=== PATIENT | male | born 1990 | race Caucasian/White ===

== ENCOUNTER 2018-11-26 20:39 | Emergency (ER) | payer OTHER ==
[2018-11-26 20:51] VITALS: BP 128/84; PULSE 83; RESP 16; TEMP 98
[2018-11-26] MEDS ORDERED: CEPHALEXIN 500MG STARTER PACK 4 CAP BTL PO STA (21:56)
[2018-11-26] MEDS ORDERED: SULFAMETH-TMP DS STARTER PACK 2 TAB BTL PO STA (21:56)
--- NOTE | 2018-11-26 21:59 | ED ---
General Adult HPI - General Source: patient, RN notes reviewed Mode of arrival: ambulatory Limitations: no limitations <Dereje Doe P - Last Filed: 11/26/18 22:01> <Juani Encarnacion P - Last Filed: 11/27/18 00:40> - General Chief complaint: Extremity Problem,Nontraumatic Stated complaint: Cellulitis Time Seen by Provider: 11/26/18 21:04 - History of Present Illness Initial comments: 28-year-old male presents to the emergency department for a chief complaint of cellulitis on the left lower extremity times one day. Patient states he noticed this late last night. Patient states he had similar symptoms about 3 months ago and was admitted to [facility] for antibiotics. Patient is unsure what antibiotics he had in the hospital but does state he was discharged on amoxicillin. Patient states he caught this early and it is not nearly as bad as when he was admitted. States he would like to try oral antibiotics. States he will certainly return if it worsens. He has felt like he had chills but has not had fevers at home. Patient has no other complaints at this time including shortness of breath, chest pain, abdominal pain, nausea or vomiting, headache, or visual changes. (Dereje Doe) - Related Data Previous Rx's Medication Instructions Recorded Cephalexin [Keflex] 500 mg PO Q6HR 10 Days cap 11/26/18 Sulfamethox-Tmp 800-160Mg [Bactrim 1 tab PO Q12HR #20 tab 11/26/18 DS 800-160 mg] Allergies Allergy/AdvReac Type Severity Reaction Status Date / Time No Known Allergies Allergy Verified 11/26/18 20:51 Review of Systems ROS Other: All systems not noted in ROS Statement are negative. <Dereje Doe P - Last Filed: 11/26/18 22:01> ROS Other: All systems not noted in ROS Statement are negative. <Juani Encarnacion P - Last Filed: 11/27/18 00:40> ROS Statement: Those systems with pertinent positive or pertinent negative responses have been documented in the HPI. Past Medical History Past Medical History: No Reported History History of Any Multi-Drug Resistant Organisms: None Reported Past Surgical History: No Surgical Hx Reported Past Psychological History: No Psychological Hx Reported Smoking Status: Never smoker Past Alcohol Use History: Occasional Past Drug Use History: None Reported <Dereje Doe P - Last Filed: 11/26/18 22:01> General Exam Limitations: no limitations General appearance: alert, in no apparent distress Head exam: Present: atraumatic, normocephalic, normal inspection Eye exam: Present: normal appearance, PERRL, EOMI. Absent: scleral icterus, conjunctival injection, periorbital swelling ENT exam: Present: normal exam, mucous membranes moist Neck exam: Present: normal inspection, full ROM. Absent: tenderness, meningismus, lymphadenopathy Respiratory exam: Present: normal lung sounds bilaterally. Absent: respiratory distress, wheezes, rales, rhonchi, stridor Cardiovascular Exam: Present: regular rate, normal rhythm, normal heart sounds. Absent: systolic murmur, diastolic murmur, rubs, gallop, clicks GI/Abdominal exam: Present: soft, normal bowel sounds. Absent: distended, tenderness, guarding, rebound, rigid Extremities exam: Present: normal capillary refill (Capillary refill less than 2 seconds and DP pulse 2+ in the left lower extremity), other (Incision intact in the left lower extremity). Absent: pedal edema, joint swelling Neurological exam: Present: alert, oriented X3, CN II-XII intact Psychiatric exam: Present: normal affect, normal mood Skin exam: Present: erythema (She has a tendency to right meter by 10 cm area of erythema noted to the left posterior calf as well as a 5 cm x 2 cm area noted to the left anterior leg. No fluctuance or abscess noted) <Dereje Doe P - Last Filed: 11/26/18 22:01> Vital Signs 11/26/18 20:47 Temperature 98 F Pulse Rate 83 Respiratory 16 Rate Blood Pressure 128/84 O2 Sat by Pulse 99 Oximetry Medical Decision Making <Dereje Doe P - Last Filed: 11/26/18 22:01> <Juani Encarnacion P - Last Filed: 11/27/18 00:40> - Medical Decision Making 28-year-old well-appearing male presents to the emergency department for chief complaint of erythema noted to the left calf. Patient has a history of cellulitis. Patient states he had this early and would prefer to try oral antibiotics. Patient has a 10 x 10 cm area of erythema noted to the left posterior calf As well as a 5 x 2 cm area of erythema noted to the left anterior town[place]. No fluctuance or area of suspected abscess. This patient would like to try outpatient antibiotics she'll be given Bactrim and Keflex. Areas of erythema were marked with a black marker. Discussed strict return precautions with patient including spreading redness. Patient agrees he will return if this occurs. Discussed with Dr. Encarnacion (Dereje Doe) I was available for consultation in the emergency department. The history and physical exam were done by the midlevel provider. I was consulted for this patient's care. I reviewed the case with the midlevel provider and based on their presentation of the patient, I agree with the assessment, medical decision making and plan of care as documented. (Juani Encarnacion) Disposition Is patient prescribed a controlled substance at d/c from ED?: No Time of Disposition: 21:57 <Dereje Doe - Last Filed: 11/26/18 22:01> <Juani Encarnacion - Last Filed: 11/27/18 00:40> Clinical Impression: Cellulitis Disposition: HOME SELF-CARE Condition: Good Instructions (If sedation given, give patient instructions): Cellulitis (ED) Additional Instructions: Please take antibiotics as directed. Please monitor for spreading redness and return if these occur. Use black marker to shanae the outline. Return if you have any worsening symptoms. Follow up with primary care in 1-2 days. Prescriptions: Cephalexin [Keflex] 500 mg PO Q6HR 10 Days cap Sulfamethox-Tmp 800-160Mg [Bactrim DS 800-160 mg] 1 tab PO Q12HR #20 tab Referrals: Marcial Person MD [REFERRING] - 1-2 days
== END 2018-11-26 22:08 | disposition home or self-care (01) ==
LOC: EC 20:39
DX: L03.116 Cellulitis of left lower limb (principal)
CPT/HCPCS: 99283

== ENCOUNTER 2019-01-14 18:26 | Inpatient (IN) | payer OTHER ==
--- NOTE | 2019-01-14 19:16 | ED ---
Skin/Abscess/FB HPI - General Source: patient, RN notes reviewed Mode of arrival: ambulatory Limitations: no limitations <Jude Galicia - Last Filed: 01/14/19 19:14> <Maribeth Billings - Last Filed: 01/14/19 21:21> - General Chief complaint: Skin/Abscess/Foreign Body Stated complaint: Cellulitis Time Seen by Provider: 01/14/19 18:48 - History of Present Illness Initial comments: 28-year-old male presents emergency Department with chief complaint of left leg pain, swelling or redness. Patient's had this recurrent infection to his leg. He states she's been hospital several times. Patient denies any known injury. No history of blood clot. Patient states he woke up, with a fever, body aches, not feeling well. Patient states he noticed his leg was red and swelling in. Patient states is also had some mild URI symptoms. Patient states that they believe this infection is from opening from his athletes feet. (Jude Galicia) - Related Data Previous Rx's Medication Instructions Recorded Cephalexin [Keflex] 500 mg PO Q6HR 10 Days cap 11/26/18 Sulfamethox-Tmp 800-160Mg [Bactrim 1 tab PO Q12HR #20 tab 11/26/18 DS 800-160 mg] Allergies Allergy/AdvReac Type Severity Reaction Status Date / Time No Known Allergies Allergy Verified 01/14/19 18:34 Review of Systems ROS Other: All systems not noted in ROS Statement are negative. <Jude Galicia - Last Filed: 01/14/19 19:14> ROS Other: All systems not noted in ROS Statement are negative. <Maribeth Billings - Last Filed: 01/14/19 21:21> ROS Statement: Those systems with pertinent positive or pertinent negative responses have been documented in the HPI. Past Medical History Past Medical History: No Reported History History of Any Multi-Drug Resistant Organisms: None Reported Past Surgical History: No Surgical Hx Reported Past Psychological History: No Psychological Hx Reported Smoking Status: Never smoker Past Alcohol Use History: Occasional Past Drug Use History: None Reported <Jude Galicia - Last Filed: 01/14/19 19:14> General Exam Limitations: no limitations General appearance: alert, in no apparent distress Head exam: Present: atraumatic, normocephalic, normal inspection Eye exam: Present: normal appearance, PERRL, EOMI. Absent: scleral icterus, conjunctival injection, periorbital swelling ENT exam: Present: normal exam, normal oropharynx, mucous membranes moist, TM's normal bilaterally Neck exam: Present: normal inspection, full ROM. Absent: tenderness, meningismus, lymphadenopathy Respiratory exam: Present: normal lung sounds bilaterally. Absent: respiratory distress, wheezes, rales, rhonchi, stridor Cardiovascular Exam: Present: regular rate, normal rhythm, normal heart sounds. Absent: systolic murmur, diastolic murmur, rubs, gallop, clicks Skin exam: Present: warm, dry, intact, normal color, rash (Left leg there is erythema, increased warmth, swelling noted, there are pulses equal of the lower extremities) <Jued Galicia - Last Filed: 01/14/19 19:14> Course Vital Signs 01/14/19 01/14/19 18:32 18:34 Temperature 98.2 F 99.8 F H Pulse Rate 102 H Respiratory 16 Rate Blood Pressure 127/71 O2 Sat by Pulse 100 Oximetry Medical Decision Making - Lab Data Result diagrams: 01/14/19 18:40 01/14/19 18:40 <Maribeth Billings - Last Filed: 01/14/19 21:21> - Medical Decision Making 28-year-old male given to me as Patient is sign out from Jude Willis. He presents today with 1 day of significant cellulitis over the left lower leg. Fever. Laboratory was obtained. White blood cell count is elevated 14,000. Patient was started on 2 g Kefzol. At this time he has significant cellulitis extending around the leg. Patient reports having intermittent cellulitis for the past few months. He was admitted to [facility] time. reports this cellulitis were is the worst that his abdomen. I discussed with Patient that we like to admit the Patient for IV antibiotics. Patient agrees to admission. (Maribeth Billings) - Lab Data Lab Results 01/14/19 01/14/19 01/14/19 Range/Units 18:40 18:40 18:40 WBC 14.3 H (3.8-10.6) k/uL RBC 5.05 (4.30-5.90) m/uL Hgb 15.3 (13.0-17.5) gm/dL Hct 44.7 (39.0-53.0) % MCV 88.4 (80.0-100.0) fL MCH 30.4 (25.0-35.0) pg MCHC 34.4 (31.0-37.0) g/dL RDW 13.2 (11.5-15.5) % Plt Count 187 (150-450) k/uL Neutrophils % 88 % Lymphocytes % 5 % Monocytes % 5 % Eosinophils % 1 % Basophils % 0 % Neutrophils # 12.6 H (1.3-7.7) k/uL Lymphocytes # 0.8 L (1.0-4.8) k/uL Monocytes # 0.7 (0-1.0) k/uL Eosinophils # 0.1 (0-0.7) k/uL Basophils # 0.0 (0-0.2) k/uL Sodium 136 L (137-145) mmol/L Potassium 4.2 (3.5-5.1) mmol/L Chloride 100 (98-107) mmol/L Carbon Dioxide 26 (22-30) mmol/L Anion Gap 10 mmol/L BUN 22 H (9-20) mg/dL Creatinine 1.17 (0.66-1.25) mg/dL Est GFR (CKD-EPI)AfAm >90 (>60 ml/min/1.73 sqM) Est GFR (CKD-EPI)NonAf 85 (>60 ml/min/1.73 sqM) Glucose 111 H (74-99) mg/dL Plasma Lactic Acid Bradley 1.5 (0.7-2.0) mmol/L Calcium 9.1 (8.4-10.2) mg/dL Total Bilirubin 1.3 (0.2-1.3) mg/dL AST 29 (17-59) U/L ALT 41 (21-72) U/L Alkaline Phosphatase 46 (38-126) U/L Total Protein 6.9 (6.3-8.2) g/dL Albumin 4.1 (3.5-5.0) g/dL Influenza Type A RNA (Not Detectd) Influenza Type B (PCR) (Not Detectd) 01/14/19 Range/Units 18:40 WBC (3.8-10.6) k/uL RBC (4.30-5.90) m/uL Hgb (13.0-17.5) gm/dL Hct (39.0-53.0) % MCV (80.0-100.0) fL MCH (25.0-35.0) pg MCHC (31.0-37.0) g/dL RDW (11.5-15.5) % Plt Count (150-450) k/uL Neutrophils % % Lymphocytes % % Monocytes % % Eosinophils % % Basophils % % Neutrophils # (1.3-7.7) k/uL Lymphocytes # (1.0-4.8) k/uL Monocytes # (0-1.0) k/uL Eosinophils # (0-0.7) k/uL Basophils # (0-0.2) k/uL Sodium (137-145) mmol/L Potassium (3.5-5.1) mmol/L Chloride (98-107) mmol/L Carbon Dioxide (22-30) mmol/L Anion Gap mmol/L BUN (9-20) mg/dL Creatinine (0.66-1.25) mg/dL Est GFR (CKD-EPI)AfAm (>60 ml/min/1.73 sqM) Est GFR (CKD-EPI)NonAf (>60 ml/min/1.73 sqM) Glucose (74-99) mg/dL Plasma Lactic Acid Bradley (0.7-2.0) mmol/L Calcium (8.4-10.2) mg/dL Total Bilirubin (0.2-1.3) mg/dL AST (17-59) U/L ALT (21-72) U/L Alkaline Phosphatase (38-126) U/L Total Protein (6.3-8.2) g/dL Albumin (3.5-5.0) g/dL Influenza Type A RNA Not Detected (Not Detectd) Influenza Type B (PCR) Not Detected (Not Detectd) Disposition <Jude Galicia - Last Filed: 01/14/19 19:14> Is patient prescribed a controlled substance at d/c from ED?: No Time of Disposition: 21:21 <Maribeth Billings - Last Filed: 01/14/19 21:21> Clinical Impression: Left leg cellulitis, Fever Disposition: ADMITTED IP TO THIS HOSP Condition: Stable Referrals: Guido Colin MD [Primary Care Provider] - 1-2 days
[2019-01-14 19:55] LABS: Basophils % (A) 0 %; Eosinophils # (A) 0.1 k/uL (0-0.7); Eosinophils % (A) 1 %; HCT 44.7 % (39.0-53.0); HGB 15.3 gm/dL (13.0-17.5); Lymphocytes # (A) 0.8 k/uL (1.0-4.8); Lymphocytes % (A) 5 %; MCH 30.4 pg (25.0-35.0); MCHC 34.4 g/dL (31.0-37.0); MCV 88.4 fL (80.0-100.0); Mean Platelet Volume 7.3; Monocytes # (A) 0.7 k/uL (0-1.0); Monocytes % (A) 5 %; Neutrophils # (A) 12.6 k/uL (1.3-7.7); Neutrophils % (A) 88 %; Platelet Count 187 k/uL (150-450); RBC 5.05 m/uL (4.30-5.90); RDW 13.2 % (11.5-15.5); WBC 14.3 k/uL (3.8-10.6)
[2019-01-14 20:08] LABS: ALT 41 U/L (21-72); AST 29 U/L (17-59); Albumin 4.1 g/dL (3.5-5.0); Alkaline Phosphatase 46 U/L (38-126); Anion Gap 10 mmol/L; Blood Urea Nitrogen 22 mg/dL (9-20); Calcium 9.1 mg/dL (8.4-10.2); Carbon Dioxide 26 mmol/L (22-30); Chloride 100 mmol/L (98-107); Glucose 111 mg/dL (74-99); Potassium 4.2 mmol/L (3.5-5.1); Sodium 136 mmol/L (137-145); Total Bilirubin 1.3 mg/dL (0.2-1.3); Total Protein 6.9 g/dL (6.3-8.2)
[2019-01-14] MEDS ORDERED: ONDANSETRON 4 MG/2 ML VIAL IVP PRN (21:23)
[2019-01-14] MEDS ORDERED: MORPHINE SULFATE 4 MG/ML SYRINGE IV PRN (21:23)
[2019-01-14] MEDS ORDERED: KETOROLAC 30 MG/ML 1 ML VIAL IVP PRN (21:23)
[2019-01-14] MEDS ORDERED: ACETAMINOPHEN TAB 325 MG TAB PO PRN (21:23)
[2019-01-14] MEDS ORDERED: NALOXONE 0.4 MG/ML 1 ML VIAL IV PRN (21:23)
[2019-01-14] MEDS ORDERED: IBUPROFEN 400 MG TAB PO PRN (21:23)
[2019-01-15 00:09] VITALS: BMI 31.6
[2019-01-15] MEDS: PIPERACILLIN-TAZOBACTAM 3.375 GM in SODIUM CHLORIDE 0.9% 100 ML IVPB SCH ×2 (00:43→08:19)
[2019-01-15] MEDS: SODIUM CHLORIDE 0.9% 1,000 ML IV SCH ×2 (02:18→21:05)
[2019-01-15] MEDS ORDERED: PANTOPRAZOLE 40 MG/10 ML VIAL IV SCH (09:00)
[2019-01-15] MEDS: ceFAZolin IN SWFI 2 GM/20 ML SYRINGE IVP SCH ×2 (15:05→23:00)
--- NOTE | 2019-01-15 15:23 | US ---
EXAMINATION TYPE: US venous doppler duplex LE LT DATE OF EXAM: 01/15/2019 1:22 PM COMPARISON: NONE CLINICAL HISTORY: 28-year-old male swelling and redness. Left leg cellulitis, exam done portable SIDE PERFORMED: Left TECHNIQUE: The lower extremity deep venous system is examined utilizing real time linear array sonog milagros with graded compression, doppler sonography and color-flow sonography. FINDINGS: VESSELS IMAGED: External Iliac Vein (EIV) Common Femoral Vein Deep Femoral Vein Greater Saphenous Vein * Femoral Vein Popliteal Vein Small Saphenous Vein * Proximal Calf Veins (* superficial vessels) Left Leg: Appears negative for DVT IMPRESSION: No evidence for DVT within the left lower extremity imaged from the groin to the upper calf.
[2019-01-15] MEDS: NYSTATIN 100,000UNIT/GM CREAM 30 GM TUBE TOPICAL SCH (21:02)
--- NOTE | 2019-01-15 23:12 | P.HPIM ---
History of Present Illness H&P Date: 01/15/19 Chief Complaint: Swelling and redness of the left lower extremity Mr. Mccall is a 28-year-old male with no significant past medical history coming in with the chief complaint of left leg pain and swelling and redness for the past couple of days. The patient states that he had a similar kind of infection in October and he was prescribed antibiotics, completed the course successfully. Patient denies having any history of blood clots. He states that [place] went [place] few of his friends couple of days back and then when he woke up one morning he felt that he was having a fever, myalgias and later noticed the redness and swelling in his left leg. Patient also complains of mild upper respiratory tract-like infections with nasal congestion and runny nose. Patient denies having any sore throat. No cough or difficulty in breathing. No chest pain or palpitations. He denies having any abdominal pain nausea vomiting or diarrhea. No dysuria or hematuria. Review of Systems REVIEW OF SYSTEMS: PSYCH: No history of anxiety or depression NEURO:No c/o weakness of the extremties, No facial droop, No speech abnormalities. VASCULAR: As per HPI HEMATOLOGIC: No history of easy bleeding and bruising . No recent infections . RESPIRATORY: No cough, No SOB, No chest discomfort. IMMUNE: No infections INTEGUMENT: no rashes OPHTHALMOLOGIC: No blurry vision and no eye discharge : No dysuria or hematuria CARDIAC: No chest pain , shortness of breath , paroxysmal nocturnal dyspnea MUSCULOSKELETAL : Complains of generalized weakness, fatigue and myalgias. GI: No abdominal pain, Nausea or vomiting. No constipation or diarrhea. Past Medical History Past Medical History: No Reported History History of Any Multi-Drug Resistant Organisms: None Reported Past Surgical History: No Surgical Hx Reported Past Psychological History: No Psychological Hx Reported Smoking Status: Never smoker Past Alcohol Use History: Occasional Past Drug Use History: None Reported Medications and Allergies Home Medications Medication Instructions Recorded Confirmed Type Acetaminophen Tab [Tylenol] 1,000 mg PO Q8H 01/14/19 01/14/19 History Allergies Allergy/AdvReac Type Severity Reaction Status Date / Time No Known Allergies Allergy Verified 01/14/19 22:13 Physical Exam Vitals: Vital Signs Temp Pulse Pulse Resp BP BP Pulse Ox 01/15/19 08:44 98.5 F 84 14 128/76 94 L 01/14/19 18:34 99.8 F H 01/14/19 18:32 98.2 F 102 H 16 127/71 100 Intake and Output 01/14/19 01/15/19 01/15/19 22:59 06:59 14:59 Intake Total 100 Balance 100 Intake: IV 100 Piperacillin-Tazobactam 3 100 .375 gm In Sodium Chloride 0.9% 100 ml @ 25 mls/hr IVPB Q8HR [facility] Rx# :[id number] Other: Voiding Method Toilet # Voids 1 Weight 117.934 kg GEN. APPEARANCE: alert, in no apparent distress HEAD EXAM: atraumatic, normocephalic, normal inspection EYE EXAM: No pallor. No icterus RESPIRATORY EXAM: Bilateral breath sounds positive No wheeze or crackles. CARDIOVASCULAR EXAM: S1-S2 heard no additional sounds. GI/ABDOMINAL EXAM: soft, normal bowel sounds. Absent: distended, tenderness, guarding, rebound, rigid EXTREMITIES EXAM: Left lower extremity is positive for erythema, warmth and tenderness ,girth more than the right. No edema. No calf tenderness. NEUROLOGICAL EXAM: alert, oriented X3, no focal neurological deficits on gross exam Results CBC & Chem 7: 01/14/19 18:40 01/14/19 18:40 Labs: Abnormal Lab Results - Last 24 Hours (Table) 01/14/19 01/14/19 Range/Units 18:40 18:40 WBC 14.3 H (3.8-10.6) k/uL Neutrophils # 12.6 H (1.3-7.7) k/uL Lymphocytes # 0.8 L (1.0-4.8) k/uL Sodium 136 L (137-145) mmol/L BUN 22 H (9-20) mg/dL Glucose 111 H (74-99) mg/dL Thrombosis Risk Factor Assmnt - Choose All That Apply Any of the Below Risk Factors Present?: Yes Each Factor Represents 1 point: Obesity (BMI >25) Thrombosis Risk Factor Assessment Total Risk Factor Score: 1 Thrombosis Risk Factor Assessment Level: Low Risk Assessment and Plan Assessment: ASSESSMENT Left lower extremity cellulitis -recurrent Viral URI PLAN: Patient has been started on Zosyn in the ED which will be continued. He received a dose of ceftriaxone. Will get lower extremity Doppler to rule out DVT. We will consult ID Dr. Foote as the patient has recurrent cellulitis. Further recommendations to follow depending on the progress of the patient.
[2019-01-16] MEDS: ceFAZolin IN SWFI 2 GM/20 ML SYRINGE IVP SCH ×3 (07:12→23:20)
[2019-01-16] MEDS: PANTOPRAZOLE 40 MG TABLET PO SCH (07:12)
[2019-01-16] MEDS: NYSTATIN 100,000UNIT/GM CREAM 30 GM TUBE TOPICAL SCH ×2 (07:13→21:05)
[2019-01-16 08:56] LABS: Basophils % (A) 1 %; Eosinophils # (A) 0.1 k/uL (0-0.7); Eosinophils % (A) 1 %; HCT 45.5 % (39.0-53.0); HGB 15.1 gm/dL (13.0-17.5); Lymphocytes # (A) 1.1 k/uL (1.0-4.8); Lymphocytes % (A) 20 %; MCH 29.4 pg (25.0-35.0); MCHC 33.1 g/dL (31.0-37.0); MCV 88.6 fL (80.0-100.0); Mean Platelet Volume 7.2; Monocytes # (A) 0.5 k/uL (0-1.0); Monocytes % (A) 9 %; Neutrophils # (A) 3.6 k/uL (1.3-7.7); Neutrophils % (A) 65 %; Platelet Count 183 k/uL (150-450); RBC 5.13 m/uL (4.30-5.90); RDW 13.2 % (11.5-15.5); WBC 5.5 k/uL (3.8-10.6)
[2019-01-16 09:21] LABS: Anion Gap 9 mmol/L; Blood Urea Nitrogen 17 mg/dL (9-20); Calcium 9.1 mg/dL (8.4-10.2); Carbon Dioxide 27 mmol/L (22-30); Chloride 106 mmol/L (98-107); Glucose 110 mg/dL (74-99); Sodium 142 mmol/L (137-145)
[2019-01-16 09:23] LABS: Potassium 4.7 mmol/L (3.5-5.1)
--- NOTE | 2019-01-16 10:11 | CONS ---
CONSULTATION DATE OF SERVICE: 01/15/2019 REASON FOR CONSULTATION: Left lower extremity cellulitis. HISTORY OF PRESENT ILLNESS: The patient is a 28-year-old male with past medical history significant for recurrent left foot cellulitis. The patient did have 2 episodes of cellulitis to the left leg, also this was in October. Apparently the patient said that he was given some antibiotic and was seen in the outpatient setting and the patient to be admitted. The patient is now presenting to the ER at [facility] yesterday evening with chief complaints of left leg swelling and redness. The pain has been going on for 2 days before coming to the hospital. The patient said it initially started when he was up [place]. Patient described pain to the left leg, more of a dull aching pain, foot 5/10 and no radiation with associated swelling and redness and did have a fever with chills. The patient was evaluated by the ER physician. The patient did have a low- grade fever of 99.9 on presentation, white count was 14.8 point he did have abdominal wound negative for DVT. Blood cultures were obtained which have been pending so far. The patient was started on Zosyn and admitted to the hospital. Infectious Disease was consulted for further recommendation regarding antibiotic therapy. REVIEW OF SYSTEMS: CONSTITUTIONAL: Positive for weakness and fever. EYES: No complaint. ENT: No complaint. RESPIRATORY: No complaint. CARDIOVASCULAR: No complaint. GENITOURINARY: NO COMPLAINT. GASTROINTESTINAL: No complaint. MUSCULOSKELETAL: No complaint. INTEGUMENT: As per HPI. Psychological: No complaint. ENDOCRINE: No complaint. NEUROLOGICAL: No complaint. PAST MEDICAL HISTORY: Left leg cellulitis x2. PAST SURGICAL HISTORY: No recent surgery. SOCIAL HISTORY: Patient denies smoking. Occasionally drinks, no drug use. FAMILY HISTORY: No pertinent findings. ALLERGIES: No known drug allergies. MEDICATIONS: The patient is currently on Zosyn, Narcan, morphine sulfate, Toradol, Motrin, and Tylenol. PHYSICAL EXAMINATION: Blood pressure is 130/71 with a pulse of 82, temperature 98.1, he is 97% on room air. General description is a middle-aged male, lying in bed in no distress. No tachypnea or accessory muscle for respiration use. HEENT: Shows no pallor or scleral icterus. Oral mucosa is dry. No erythema or thrush. NECK: Trachea central, no thyromegaly. LUNGS: Unlabored breathing, clear to auscultation anteriorly. No wheeze or crackles. HEART: S1-S2, regular rate and rhythm. ABDOMEN: Soft, no tenderness. No rigidity. EXTREMITIES: Left leg with diffuse swelling, redness, mostly in the lower leg area with some culture to the left mid thigh area. No drainage. However, the patient did have evidence of athlete's foot in between the toes. NEUROLOGICAL: Patient is awake, alert, oriented, mood and affect normal. LABS: Hemoglobin is 15, white count is 14.3 with a BUN of 22, creatinine 1.17, influenza serology negative. Blood culture currently pending. DIAGNOSTIC IMPRESSION AND PLAN: Patient with extensive left lower extremity cellulitis. This patient did have diffuse swelling and redness likely streptococcal disease. Clinically doubt a gram-negative or recent wound infection with Athlete's foot more likely the reason for his recurrent left lower extremity cellulitis. PLAN: 1. Discontinue the Zosyn. 2. Will start the patient on cefazolin 2 g q.8 hours. 3. cream 2 twice a day. 4. The patient has been educated about his condition including probable treatment of his Athlete's foot to prevent recurrence of this in the future. 5. Will follow up on his clinical condition and adjust her medications further if needed. Thank you for this consultation. Will follow this patient along with you. RODGER / DEBRA: [id number] /
[2019-01-16] MEDS: SODIUM CHLORIDE 0.9% 1,000 ML IV SCH (21:05)
[2019-01-16 23:08] VITALS: RESP 18
--- NOTE | 2019-01-17 06:48 | PN ---
PROGRESS NOTE DATE OF SERVICE: 01/16/2019. REASON FOR FOLLOWUP: Left lower extremity cellulitis and Athlete's foot. INTERVAL HISTORY: The patient is currently afebrile. Overall pain, swelling and redness to the left leg has decreased. The patient denies having any chest pain. No shortness of breath or cough. No abdominal pain or any diarrhea. PHYSICAL EXAMINATION: On examination, blood pressure 126/76, pulse of 72, temperature 98.6. He is 98% on room air. General description is a middle-aged male, lying in bed, in no distress. RESPIRATORY SYSTEM: Unlabored breathing, clear to auscultation anteriorly. HEART: S1, S2. Regular rate and rhythm. ABDOMEN: Soft, no tenderness. Left leg swelling and redness have slightly decreased. LABS: Hemoglobin 15.1, white count 5.5. BUN of 17, creatinine 0.87. DIAGNOSTIC IMPRESSION AND PLAN: 1. Patient with acute left lower extremity cellulitis with diffuse swelling, redness likely streptococcal disease in a patient who did have evidence of Athlete's foot. Patient is currently covered with cefazolin 2 grams q.8, to continue for now. Finish therapy with oral antibiotics if the patient continued to improve. 2. Athlete's foot . All his questions and concerns were answered. MMODL / IJN: [id number] /
[2019-01-17 07:07] VITALS: BP 128/72; PULSE 75; TEMP 98.7
[2019-01-17] MEDS: ceFAZolin IN SWFI 2 GM/20 ML SYRINGE IVP SCH (07:26)
[2019-01-17] MEDS: NYSTATIN 100,000UNIT/GM CREAM 30 GM TUBE TOPICAL SCH (07:26)
[2019-01-17] MEDS: PANTOPRAZOLE 40 MG TABLET PO SCH (07:26)
--- NOTE | 2019-01-17 13:09 | PN ---
PROGRESS NOTE DATE OF SERVICE: 01/17/2019 REASON FOR FOLLOWUP: 1. Left foot cellulitis. 2. Athlete's foot. INTERVAL HISTORY: The patient is currently afebrile. The patient is breathing comfortably. Patient denies having any chest pain. No shortness of breath. No cough, no abdominal pain. Left leg pain, swelling and redness has improved. No diarrhea. PHYSICAL EXAMINATION: Blood pressure 128/72 with a pulse of 75, temperature 98.7, he is 98% on room air. General description is a middle-aged male, lying in bed in no distress. RESPIRATORY SYSTEM: Unlabored breathing, clear to auscultation anteriorly. HEART: S1, S2. Regular rate and rhythm. ABDOMEN: Soft, no tenderness. Left leg swelling, redness has improved. LABS: Blood culture negative, no labs obtained today. DIAGNOSTIC IMPRESSION AND PLAN: 1. Patient with left foot cellulitis. This patient has underlying Athlete's foot. Patient has significant clinical improvement. Plan at this time is to finish therapy with oral Keflex 500 mg q.6 hours for 10 days. Prescription sent to pharmacy. 2. Patient's Athlete's foot continue nystatin cream between the toes twice a day for about a week. Prescription was sent to the pharmacy. Patient is to follow up in the office in 1 week. Their questions were answered. MMODL / IJN: [id number] /
== END 2019-01-17 14:13 | disposition home or self-care (01) | DRG 603 ==
LOC: EC 18:26 → 3NMEDONC 21:03 → 4MS4W 01-15 07:43
PROVIDERS: ADMIT Hospitalist; ATTEND Hospitalist
DX: L03.116 Cellulitis of left lower limb (principal); B35.3 Tinea pedis
CPT/HCPCS: 36415; 80048; 80053; 83605; 85025; 87040; 87502; 96365; 96366; 96367; 99284

== ENCOUNTER 2019-04-24 17:29 | Observation (INO) | payer OTHER ==
[2019-04-24] MEDS ORDERED: cefTRIAXone IN SWFI 1,000 MG/10 ML SYRINGE IVP STA (18:38)
[2019-04-24 19:10] LABS: Basophils % (A) 0 %; Eosinophils # (A) 0.1 k/uL (0-0.7); Eosinophils % (A) 1 %; HCT 45.6 % (39.0-53.0); HGB 15.7 gm/dL (13.0-17.5); Lymphocytes % (A) 6 %; MCHC 34.5 g/dL (31.0-37.0); MCV 86.9 fL (80.0-100.0); Mean Platelet Volume 7.3; Monocytes # (A) 0.7 k/uL (0-1.0); Monocytes % (A) 4 %; Neutrophils # (A) 16.2 k/uL (1.3-7.7); Neutrophils % (A) 89 %; Platelet Count 235 k/uL (150-450); RBC 5.25 m/uL (4.30-5.90); RDW 14.3 % (11.5-15.5); WBC 18.2 k/uL (3.8-10.6)
[2019-04-24 19:23] LABS: ALT 31 U/L (21-72); AST 25 U/L (17-59); African American GFR (CKD) >90 (>60 ml/min/1.73 sqM); Albumin 4.5 g/dL (3.5-5.0); Alkaline Phosphatase 51 U/L (38-126); Anion Gap 11 mmol/L; Blood Urea Nitrogen 17 mg/dL (9-20); Calcium 9.5 mg/dL (8.4-10.2); Carbon Dioxide 27 mmol/L (22-30); Chloride 99 mmol/L (98-107); Creatine Kinase 230 U/L (55-170); Glucose 96 mg/dL (74-99); Potassium 3.8 mmol/L (3.5-5.1); Sodium 137 mmol/L (137-145); Total Protein 7.2 g/dL (6.3-8.2)
[2019-04-24] MEDS ORDERED: ACETAMINOPHEN TAB 325 MG TAB PO STA (19:48)
--- NOTE | 2019-04-24 19:50 | ED ---
Skin/Abscess/FB HPI - General Chief complaint: Skin/Abscess/Foreign Body Stated complaint: CELLUITIS ON LEFT LEG Time Seen by Provider: 04/24/19 18:02 Source: patient Mode of arrival: ambulatory Limitations: no limitations - History of Present Illness Initial comments: 29-year-old male presenting today for chief complaint of cellulitis to the left lower extremity x 1 day. Patient states he is experiencing cellulitis and off for months. He states it had resolved for a while and returned less than 24 hours ago. Patient states is extensive. He states he did outline the area a few hours prior however he has not extended past. Patient denies any bl istering. Patient states he does not feel as though he had a fever. However, patient is febrile on arrival. Patient denies any flulike symptoms. Patient denies any pain out of proportion. He states is only tender when he walks feels like there is skin stretching. Patient denies any conjunctivits, nausea, vomiting. Patient denies any injury/trauma to the area. Remaining ROS (-). Temperature 101.1F on arrival. - Related Data Home Medications Medication Instructions Recorded Confirmed No Known Home Medications 04/24/19 04/24/19 Allergies Allergy/AdvReac Type Severity Reaction Status Date / Time No Known Allergies Allergy Verified 04/24/19 18:31 Review of Systems ROS Statement: Those systems with pertinent positive or pertinent negative responses have been documented in the HPI. ROS Other: All systems not noted in ROS Statement are negative. Past Medical History Past Medical History: No Reported History History of Any Multi-Drug Resistant Organisms: None Reported Past Surgical History: No Surgical Hx Reported Past Psychological History: No Psychological Hx Reported Smoking Status: Never smoker Past Alcohol Use History: Occasional Past Drug Use History: None Reported General Exam - General Exam Comments Initial Comments: General: The patient is awake and alert, in no distress, and does not appear acutely ill. Eye: Pupils are equal, round and reactive to light, extra-ocular movements are intact. No nystagmus. There is normal conjunctiva bilaterally. No signs of icterus. Ears, nose, mouth and throat: There are moist mucous membranes and no oral lesions. Neck: The neck is supple, there is no tenderness or JVD. Cardiovascular: There is a regular rate and rhythm. No murmur, rub or gallop is appreciated. Respiratory: Lungs are clear to auscultation, respirations are non-labored, breath sounds are equal. No wheezes, stridor, rales, or rhonchi. Musculoskeletal: Normal ROM, no tenderness. Strength 5/5. Sensation intact. DP and radial pulses equal bilaterally 2+. Neurological: A&O x 3. CN II-XII intact, There are no obvious motor or sensory deficits. Coordination appears grossly intact. Speech is normal. Skin: Skin is warm and dry and no rashes or lesions are noted. Extensive cellulitis of the left lower extremity it is circumferential, extending from ankle to just below the knee. No blistering or pain to palpation. Psychiatric: Cooperative, appropriate mood & affect, normal judgment. Limitations: no limitations Course Vital Signs 04/24/19 17:47 Temperature 101.1 F H Pulse Rate 85 Respiratory 18 Rate Blood Pressure 147/58 O2 Sat by Pulse 99 Oximetry Medical Decision Making - Medical Decision Making 29-year-old male presenting for cellulitis. Extensive cellulitis and examination. No blistering. White count 18. Temperature 101.1 Fahrenheit. Patient lactic acid within normal limits. CK mildly elevated. Patient given IV antibiotics emergency. He denies any significant pain. Patient was also provided Tylenol for fever management. Patient heart rate and blood pressure within acceptable limits. Given the extent of the cellulitis and progression CT of the left lower extremity was obtained, this revealed no free air. Discussed the case with attending provider and reviewed imaging studies with Dr. Calixto who is agreeable with care plan. Patient admitted to Dr. Ramsey PCP. Infectious disease on consult per PCP recommendation. Pt agreeable with admission. - Lab Data Result diagrams: 04/24/19 18:55 04/24/19 18:55 Lab Results 04/24/19 04/24/19 04/24/19 Range/Units 18:55 18:55 18:55 WBC 18.2 H (3.8-10.6) k/uL RBC 5.25 (4.30-5.90) m/uL Hgb 15.7 (13.0-17.5) gm/dL Hct 45.6 (39.0-53.0) % MCV 86.9 (80.0-100.0) fL MCH 30.0 (25.0-35.0) pg MCHC 34.5 (31.0-37.0) g/dL RDW 14.3 (11.5-15.5) % Plt Count 235 (150-450) k/uL Neutrophils % 89 % Lymphocytes % 6 % Monocytes % 4 % Eosinophils % 1 % Basophils % 0 % Neutrophils # 16.2 H (1.3-7.7) k/uL Lymphocytes # 1.0 (1.0-4.8) k/uL Monocytes # 0.7 (0-1.0) k/uL Eosinophils # 0.1 (0-0.7) k/uL Basophils # 0.0 (0-0.2) k/uL Sodium 137 (137-145) mmol/L Potassium 3.8 (3.5-5.1) mmol/L Chloride 99 (98-107) mmol/L Carbon Dioxide 27 (22-30) mmol/L Anion Gap 11 mmol/L BUN 17 (9-20) mg/dL Creatinine 1.11 (0.66-1.25) mg/dL Est GFR (CKD-EPI)AfAm >90 (>60 ml/min/1.73 sqM) Est GFR (CKD-EPI)NonAf >90 (>60 ml/min/1.73 sqM) Glucose 96 (74-99) mg/dL Plasma Lactic Acid Bradley 1.3 (0.7-2.0) mmol/L Calcium 9.5 (8.4-10.2) mg/dL Total Bilirubin 1.0 (0.2-1.3) mg/dL AST 25 (17-59) U/L ALT 31 (21-72) U/L Alkaline Phosphatase 51 (38-126) U/L Creatine Kinase 230 H (55-170) U/L Total Protein 7.2 (6.3-8.2) g/dL Albumin 4.5 (3.5-5.0) g/dL Disposition Clinical Impression: Cellulitis, Fever, Leukocytosis Disposition: ADMITTED IP TO THIS HOSP Condition: Stable Is patient prescribed a controlled substance at d/c from ED?: No Referrals: Mich Goldberg MD [Primary Care Provider] - 1-2 days Time of Disposition: 19:49 Decision to Admit Reason: Admit from EC Decision Date: 04/24/19 Decision Time: 19:49
[2019-04-24] MEDS ORDERED: NALOXONE 0.4 MG/ML 1 ML VIAL IV PRN (19:54)
[2019-04-24] MEDS ORDERED: ONDANSETRON 4 MG/2 ML VIAL IVP STA (20:23)
[2019-04-24] MEDS ORDERED: FAMOTIDINE 20 MG/2 ML VIAL IV STA (20:24)
[2019-04-24] MEDS ORDERED: diphenhydrAMINE 50 MG/ML 1 ML VIAL IVP STA (20:24)
[2019-04-24] MEDS ORDERED: VANCOMYCIN IV PER PHARMACY 1 EACH MISC MISCELLANE PRN (20:43)
--- NOTE | 2019-04-24 20:46 | XR ---
PROCEDURE: XR tibia fibula LT - 4V DATE AND TIME: 04/24/2019 8:13 PM CLINICAL INDICATION: PHH; gas TECHNIQUE: Department protocol COMPARISON: None FINDINGS: There is no fracture or malalignment. The soft tissues are unremarkable. IMPRESSION: NO ACUTE PROCESS.
--- NOTE | 2019-04-24 20:55 | CT ---
EXAMINATION TYPE: CT lower extremity LT w con DATE OF EXAM: 04/24/2019 COMPARISON: Radiographs 04/24/2019 HISTORY: redness and swelling to left leg distal to knee. hx of cellulitis CT DLP: 587.2 mGycm Automated exposure control for dose reduction was used. CONTRAST: Performed with IV Contrast, patient injected with 100 mL of Isovue 300. FINDINGS: Imaging was obtained from the knee to the ankle. There is mild generalized soft tissue swelling. There is no focal fluid collection to suggest soft ti ssue abscess. The vasculature is widely patent. The bones and joints have normal appearance. IMPRESSION: MILD SOFT TISSUE SWELLING; NO OTHER FINDINGS.
[2019-04-24] MEDS ORDERED: SODIUM CHLORIDE 0.9% 500 ML 500 ML IV ONE (21:01)
[2019-04-24] MEDS ORDERED: VANCOMYCIN 2,000 MG in SODIUM CHLORIDE 0.9% 500 ML 500 ML IVPB STA (21:06)
[2019-04-24] MEDS: SODIUM CHLORIDE 0.9% 1,000 ML IV SCH (21:20)
[2019-04-24] MEDS ORDERED: ACETAMINOPHEN TAB 325 MG TAB PO PRN (23:00)
[2019-04-25] MEDS: VANCOMYCIN 2,000 MG in SODIUM CHLORIDE 0.9% 500 ML 500 ML IVPB SCH ×2 (04:59→11:20)
[2019-04-25] MEDS: SODIUM CHLORIDE 0.9% 1,000 ML IV SCH ×4 (04:59→17:18)
[2019-04-25 06:08] VITALS: BMI 35.9
--- NOTE | 2019-04-25 08:21 | P.HPIM ---
History of Present Illness Chief complaint Weakness and chills History of present illness The patient is a 29-year-old male who is actually on his way to work when he felt weak and feverish and tired. Patient pulled over and actually arrested for a while and then returned home and finding that his leg was erythematous and uncomfortable. Patient came to the emergency room. Patient has had apparently 2 prior episodes of cellulitis of the left lower extremity. 1 episode back in December and also in December of this year. No history of any trauma. Past medical history Past medical history is negative for diabetes. 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 No history of heart disease. No history of stroke. No history of any liver disease. Last episode of cellulitis was treated to here initially with Zosyn and later switched to IV cephalosporin and an oral cephalosporin upon discharge. He has not had any problems since the episode in December of this year. No known ALLERGIES and no known home medications although he does use some hydrocortisone cream to the left leg rash. Review of systems As stated in the history of present illness. No headaches or visual complaints. No cough or shortness of breath. No chest pain. No nausea or vomiting. No abdominal pain. No change in bowel movements. No blood in stools. No urinary complaints. Family history Patient states he has a sister that has lupus. Also family history of hypertension. Social history Patient does not smoke or drink to excess. The patient works on a regular basis. Lives locally. Physical examination Patient is alert. Lying in bed. In no acute distress. Temperature on presentation was 101.1. This is decreased down to 98.4 with a pulse of 73 and respirations 16. Blood pressure 123/80 and he is 98% saturated on room air. Head and neck exam is atraumatic. Extraocular movements are intact. Neck supple without adenopathy or thyromegaly. Lungs are clear to auscultation. Heart tones were regular without murmurs. Abdomen is soft and nontender without organomegaly or masses detected. Genital and rectal exam deferred. Left lower extremity has large irregular patches of erythema. It does have some increased warmth and some tenderness to palpation. No drainage or weeping noted. Patient does have several smaller patches of scaling lesions just below the left knee anteriorly. Although the erythema does not extend directly from these areas. Neurologically he is alert and oriented. Cranial nerves intact. No focal we akness noted. Laboratory White count elevated at 18.2 with a hemoglobin of 15.7 and a platelet count of 235. Neutrophils were elevated at 16.2. Electrolytes were normal. BUN of 17 with creatinine 1.11 given him a GFR greater than 90. Blood sugar was 96. Venous lactic acid level was 1.3. Liver function tests were normal. CK was elevated at 230. Albumin 4.5. Left leg x-rays showed no acute process. No evidence of osteomyelitis. Computed tomography scan of the left lower extremity with contrast showed some mild soft tissue swelling but no other findings. Impressions 1. Cellulitis of left lower extremity. Likely gram-positive strep organisms likely cause. This was associated with systemic inflammatory response syndrome with weakness, chills and fever. This is a recurrent episode apparently the third this year so far. Plans at this time We'll continue present antibiotics pending consultation with infectious disease. Further recommendations to follow up pending clinical response.. Past Medical History Past Medical History: No Reported History History of Any Multi-Drug Resistant Organisms: None Reported Past Surgical History: No Surgical Hx Reported Past Psychological History: No Psychological Hx Reported Smoking Status: Never smoker Past Alcohol Use History: Occasional Past Drug Use History: None Reported Medications and Allergies Home Medications Medication Instructions Recorded Confirmed Type No Known Home Medications 04/24/19 04/24/19 History Allergies Allergy/AdvReac Type Severity Reaction Status Date / Time No Known Allergies Allergy Verified 04/24/19 18:31 Physical Exam Vitals: Vital Signs Temp Pulse Pulse Resp BP BP Pulse Ox 04/25/19 07:00 98.4 F 73 16 123/80 98 04/25/19 01:41 98.6 F 67 18 115/76 97 04/24/19 23:20 98.6 F 72 16 134/75 96 04/24/19 22:00 99.8 F H 78 18 113/77 97 04/24/19 17:47 101.1 F H 85 18 147/58 99 Intake and Output 04/24/19 04/25/19 04/25/19 22:59 06:59 14:59 Intake Total 500 Balance 500 Intake: Intake, IV Titration 500 Amount Vancomycin 2,000 mg In 500 Sodium Chloride 0.9% 500 ml 500 ml @ 167 mls/hr IVPB ONCE STA Rx#: [id number] Other: Weight 133.674 kg Results CBC & Chem 7: 04/24/19 18:55 04/24/19 18:55 Labs: Abnormal Lab Results - Last 24 Hours (Table) 04/24/19 04/24/19 Range/Units 18:55 18:55 WBC 18.2 H (3.8-10.6) k/uL Neutrophils # 16.2 H (1.3-7.7) k/uL Creatine Kinase 230 H (55-170) U/L Thrombosis Risk Factor Assmnt - Choose All That Apply Each Factor Represents 1 point: Obesity (BMI >25) Thrombosis Risk Factor Assessment Total Risk Factor Score: 1 Thrombosis Risk Factor Assessment Level: Low Risk
[2019-04-25] MEDS: ceFAZolin IN SWFI 2 GM/20 ML SYRINGE IVP SCH (16:38)
[2019-04-26 00:09] VITALS: RESP 16
[2019-04-26] MEDS: ceFAZolin IN SWFI 2 GM/20 ML SYRINGE IVP SCH ×2 (00:45→09:25)
[2019-04-26] MEDS: SODIUM CHLORIDE 0.9% 1,000 ML IV SCH (03:17)
--- NOTE | 2019-04-26 06:37 | P.CONS ---
History of Present Illness - Reason for Consult Consult date: 04/25/19 left lower extremity cellulitis Requesting physician: Mich Goldberg - Chief Complaint left leg swelling redness 1 day - History of Present Illness patient is a 29-year-old male with a past medical history significant for recurrent left lower extremty cellulitis is being his fourth episode patient also have a history of eczema some patches to the left leg the patient has been treated with some local creams, the patient presented to the hospital yesterday with chief complaints of left leg swelling and redness for 1 prior to that the the patient have rigors and chills, nd then noticed the left leg becoming more swollen and red warm and mildly painful more of a dull aching pain 2-3 out of 10 and no radiation with the symptoms the patient presented to [facility] ER with the patient was evaluated by the physician on arrival to the ER the patient did have a fever of 101Fpatient did have elevated white count of 18,000 CT of the leg showed soft tissue edema but no other abnormality x-rays of the legs were negative for any bony fracture the patient was started on vancomycin admitted to the hospital infectious disease was consulted because of recurrent episodes of cellulitis Review of Systems positive points as Mentioned in HPI, rest of the systems are negative Past Medical History Past Medical History: No Reported History History of Any Multi-Drug Resistant Organisms: None Reported Past Surgical History: No Surgical Hx Reported Past Psychological History: No Psychological Hx Reported Smoking Status: Never smoker Past Alcohol Use History: Occasional Past Drug Use History: None Reported Medications and Allergies Home Medications Medication Instructions Recorded Confirmed Type No Known Home Medications 04/24/19 04/24/19 History Allergies Allergy/AdvReac Type Severity Reaction Status Date / Time No Known Allergies Allergy Verified 04/24/19 18:31 Physical Exam Vitals: Vital Signs Temp Pulse Pulse Resp BP BP Pulse Ox 04/25/19 14:19 99.3 F 70 20 149/79 98 04/25/19 07:00 98.4 F 73 16 123/80 98 04/25/19 01:41 98.6 F 67 18 115/76 97 04/24/19 23:20 98.6 F 72 16 134/75 96 04/24/19 22:00 99.8 F H 78 18 113/77 97 04/24/19 17:47 101.1 F H 85 18 147/58 99 Intake and Output 04/25/19 04/25/19 04/25/19 06:59 14:59 22:59 Intake Total 500 622 Balance 500 622 Intake: Intake, IV Titration 500 Amount Vancomycin 2,000 mg In 500 Sodium Chloride 0.9% 500 ml 500 ml @ 167 mls/hr IVPB ONCE STA Rx#: [id number] Oral 622 Other: # Voids 2 GENERAL DESCRIPTION: Middle-aged male lying in bed, no distress. No tachypnea or accessory muscle of respiration use. HEENT: Shows Pallor , no scleral icterus. Oral mucous membrane is dry. No pharyngeal erythema or thrush NECK: Trachea central, no thyromegaly. LUNGS: Unlabored breathing. Clear to auscultation anteriorly. No wheeze or crackle. HEART: S1, S2, regular rate and rhythm. No loud murmur ABDOMEN: Soft, no tenderness , guarding or rigidity, no organomegaly EXTREMITIES: left leg with diffuse swelling and redness slightly warm to touch no fluctuation induration or drainage. SKIN: No rash, no masses palpable. NEUROLOGICAL: The patient is awake, alert, oriented x3, mood and affect normal Results CBC & Chem 7: 04/24/19 18:55 04/24/19 18:55 Labs: Abnormal Lab Results - Last 24 Hours (Table) 04/24/19 04/24/19 Range/Units 18:55 18:55 WBC 18.2 H (3.8-10.6) k/uL Neutrophils # 16.2 H (1.3-7.7) k/uL Creatine Kinase 230 H (55-170) U/L Assessment and Plan Assessment: 1-patient presented to hospital with sepsis in this patient would did have a fever of 101F the patient did have elevated white count of 18,000 source is acute and left lower extremity cellulitis in this patient who did have a history of recurrent cellulitis initiating factor could be athletes foot and the eczema, and likely a streptococcal disease clinically doubt MRSA infection (1) Sepsis Current Visit: Yes Status: Acute Code(s): A41.9 - SEPSIS, UNSPECIFIED OR GANISM SNOMED Code(s): 69461057 (2) Left leg cellulitis Current Visit: No Status: Acute Code(s): L03.116 - CELLULITIS OF LEFT LOWER LIMB SNOMED Code(s): 790855040 Plan: 1-discontinue the vancomycin 2-start the patient on cefazolin 2 g every 8 hours 3-patient has been educated about his condition as prompt treatment of athlete's footand eczema can prevent recurrent cellulitis we will follow up on clinical condition and cultures to further adjust medication if needed Thank you for this consultation will follow this patient along with you Time with Patient: Greater than 30
[2019-04-26 07:55] VITALS: BP 120/76; PULSE 58; TEMP 97.9
--- NOTE | 2019-04-26 08:22 | P.PN ---
Progress Note - Text The patient is a 21-year-old gentleman who presented with a repeat episode of cellulitis of the left lower extremity. He had marked erythema of the left lower extremity on presentation and was initially treated with vancomycin and subsequently Kefzol IV upon consultation with infectious disease. This morning the patient's left leg is about all cleared. No discomfort. He is afebrile. Vital signs show a temperature 97.9 with a pulse of 58 and respirations 16. Blood pressure 120/76 and he is 98% saturated on room air. Lung and heart exam was clear. Once again the erythema is just about all cleared to the lower extremity. He is having no edema or pain. No new labs are back at this time. Impressions and plans A resolving cellulitis of the left lower extremity. Discussed with patient and nursing staff. Patient can likely be discharged if okay with infectious disease unlikely on a oral cephalosporin. Patient also states that he will be going to [place] soon and would like some extra antibiotics in case needed. Discussed care of his underlying eczema skin lesions which have improved. And he is to continue with his home creams. Follow up in office. Patient did ask about doing a bone scan. I discussed with him that his x-rays and CAT scan did not show any sign of underlying bone infection on admission. That a bone scan would not likely be helpful.
[2019-04-26 10:59] LABS: HCT 47.3 % (39.0-53.0); HGB 15.6 gm/dL (13.0-17.5); MCH 29.5 pg (25.0-35.0); MCHC 32.9 g/dL (31.0-37.0); MCV 89.8 fL (80.0-100.0); Mean Platelet Volume 6.7; Platelet Count 259 k/uL (150-450); RBC 5.27 m/uL (4.30-5.90); RDW 13.6 % (11.5-15.5); WBC 5.2 k/uL (3.8-10.6)
[2019-04-26] MEDS ORDERED: VANCOMYCIN TROUGH DUE 1 EACH MISC MISCELLANE ONE (11:00)
--- NOTE | 2019-04-26 11:02 | PN ---
PROGRESS NOTE DATE OF SERVICE: 04/26/2019 REASON FOR FOLLOWUP: Left lower extremity cellulitis. INTERVAL HISTORY: The patient is currently afebrile. Patient has been breathing comfortably. The patient denies having any chest pain or shortness of breath. No cough. No abdominal pain. Overall swelling of the left leg has improved. PHYSICAL EXAMINATION: Blood pressure is 120/76, pulse of 88, temperature 97.9 he is 98% on room air. General description is a middle aged male, up in the room in no distress. RESPIRATORY SYSTEM: Unlabored breathing, clear to auscultation anteriorly. HEART: S1, S2. Regular rate and rhythm. ABDOMEN: Soft, no tenderness. LEG: Left leg see SKIN: Ne is left leg swelling is much improved. LABS: No new labs have been obtained today. Blood culture has been negative. DIAGNOSTIC IMPRESSION/PLAN: 1. Patient with left lower extremity cellulitis. Patient has shown overall clinical improvement. Antibiotic will be transitioned to oral Keflex 500 mg p.o. b.i.d. for another 7 days with close outpatient followup. 2. Extra prescription provided the patient as he is traveling to [place] to followup an office improvement and discussed with the patient and family how to prevent recurrent cellulitis. MMODL / IJN: [id number] /
[2019-04-26 11:12] LABS: African American GFR (CKD) >90 (>60 ml/min/1.73 sqM); Anion Gap 10 mmol/L; Blood Urea Nitrogen 16 mg/dL (9-20); Calcium 9.4 mg/dL (8.4-10.2); Carbon Dioxide 27 mmol/L (22-30); Chloride 106 mmol/L (98-107); Glucose 96 mg/dL (74-99); Potassium 4.2 mmol/L (3.5-5.1); Sodium 143 mmol/L (137-145)
[2019-04-26 11:53] LABS: Band Neutrophils % 2 %; Eosinophils # (M) 0.05 k/uL (0-0.7); Lymphocytes # (M) 1.46 k/uL (1.0-4.8); Monocytes # (M) 0.36 k/uL (0-1.0); Neutrophils % (M) 62 %; Nucleated Red Blood Cells 0 /100 WBC (0-0); Total Cells Counted 100
--- NOTE | 2019-04-26 23:47 | DS ---
DISCHARGE SUMMARY This patient is a 29-year-old male who developed acute cellulitis of the left lower extremity with marked erythema, fever, chills and fatigue. The patient came to the emergency room. He was initially started on vancomycin. Initial laboratory values revealed an elevated white count of 18,000. The patient has also had 2 somewhat similar episodes earlier this year. On admission, temperature was 101. White count was 18.2 with hemoglobin 15.7, platelet count normal at 235. Chemistries were unremarkable. Electrolytes were normal with a BUN of 17, creatinine 1.11, giving him a GFR greater than 90. Venous lactic acid level was normal at 1.3, and blood sugar was 96. Liver function tests were normal. CK was mildly elevated at 230, albumin normal at 4.5. He did have x-rays of the leg and also a CT scan which did not show any evidence of bone involvement or abnormality. As mentioned, the patient was seen by Infectious Disease, Dr. Foote, and was switched over to IV Kefzol over 24 to 48 hours. There was marked improvement in the erythema and edema of the lower extremities. The patient remained afebrile. At this point, plans are for the patient to be discharged to home. Antibiotics as per Infectious Disease on discharge is 500 mg q.6 hours #40. The patient was also going to [place] and he was given the antibiotics for the trip. Apparently infectious Disease did discuss prevention of further cellulitis episodes. FINAL DISCHARGE DIAGNOSES: 1. Cellulitis of the left lower extremity associated with elevated white count and fever along with weakness, likely systemic inflammatory response syndrome. 2. The patient does have some element of eczema and athlete's foot of the lower extremities, which are possible sources for the infection. 3. He does have underlying obesity. The patient will be followed up in the office over the next 24-48 hours and call if any concerns or problems should arise. MMODL / IJN: [id number] / MELBA
== END 2019-04-26 10:40 | disposition home or self-care (01) ==
LOC: EC 17:29 → 4SSUR 21:05 → 4MS4W 04-25 18:55
PROVIDERS: ADMIT Internal Medicine; ATTEND Internal Medicine
DX: L03.116 Cellulitis of left lower limb (principal); L30.9 Dermatitis, unspecified; B35.3 Tinea pedis; E66.9 Obesity, unspecified; Z68.35 Body mass index [BMI] 35.0-35.9, adult; R60.0 Localized edema; D72.828 Other elevated white blood cell count; R74.8 Abnormal levels of other serum enzymes; M79.89 Other specified soft tissue disorders; L40.9 Psoriasis, unspecified; Z82.49 Family history of ischemic heart disease and other diseases of the circulatory system; Z84.89 Family history of other specified conditions
CPT/HCPCS: 96376; 96366 ×2; 96375 ×2; 96365; 99285; 36415; 80053; 80048; 82550; 83605; 85025 ×2; 87040; 86038; 73590; 73701; G0378 ×3; J3370 ×2; J0696; J0690 ×2; Q9967

== ENCOUNTER 2019-08-07 18:11 | Emergency (ER) | payer OTHER ==
[2019-08-07 18:26] VITALS: RESP 18
--- NOTE | 2019-08-07 18:45 | ED ---
General Adult HPI - General Chief complaint: Skin/Abscess/Foreign Body Stated complaint: Leg pain Time Seen by Provider: 08/07/19 18:32 Source: patient, RN notes reviewed, old records reviewed Mode of arrival: ambulatory Limitations: no limitations - History of Present Illness Initial comments: Patient is 21-year-old male, presents emergency department today for evaluation for chief complaint of redness and swelling and pain to the left lower extremit y. Patient alexandra is had recurrent cellulitis on this leg. Patient warts last bout of cellulitis was approximately 5 months ago. Patient reports that he is currently in [place] for a job, and flew home yesterday to deal with this. Patient reports over the past 24 hours it's increased quite quickly. He denies a specific fevers or chills. Patient states that he did take Keflex that he's had on hand yesterday. He's had 2 doses of the antibiotic. Patient has had no specific fever or chill this time. - Related Data Previous Rx's Medication Instructions Recorded Cephalexin [Keflex] 500 mg PO Q6HR #40 cap 04/26/19 Cephalexin [Keflex] 500 mg PO Q6H #40 cap 08/07/19 L.acidoph,Paracasei, B.lactis 1 each PO DAILY #30 capsule 08/07/19 [Probiotic] Sulfamethox-Tmp 800-160Mg [Bactrim 2 tab PO Q12HR #40 tab 08/07/19 DS 800-160 mg] Allergies Allergy/AdvReac Type Severity Reaction Status Date / Time No Known Allergies Allergy Verified 08/07/19 18:26 Review of Systems ROS Statement: Those systems with pertinent positive or pertinent negative responses have been documented in the HPI. ROS Other: All systems not noted in ROS Statement are negative. Past Medical History Past Medical History: No Reported History Additional Past Medical History / Comment(s): lt leg cellulitis History of Any Multi-Drug Resistant Organisms: None Reported Past Surgical History: No Surgical Hx Reported Past Psychological History: No Psychological Hx Reported Smoking Status: Never smoker Past Alcohol Use History: Occasional Past Drug Use History: None Reported General Exam - General Exam Comments Initial Comments: 21-year-old male. Alert and oriented 3. Patient appears in no significant distress. Limitations: no limitations General appearance: alert, in no apparent distress Head exam: Present: atraumatic, normocephalic, normal inspection Eye exam: Present: normal appearance, PERRL, EOMI. Absent: scleral icterus, conjunctival injection, periorbital swelling ENT exam: Present: normal exam, mucous membranes moist Neck exam: Present: normal inspection. Absent: tenderness, meningismus, lymphadenopathy Respiratory exam: Present: normal lung sounds bilaterally. Absent: respiratory distress, wheezes, rales, rhonchi, stridor Cardiovascular Exam: Present: regular rate, normal rhythm, normal heart sounds. Absent: systolic murmur, diastolic murmur, rubs, gallop, clicks GI/Abdominal exam: Present: soft, normal bowel sounds. Absent: distended, tenderness, guarding, rebound, rigid Extremities exam: Present: normal inspection, full ROM, normal capillary refill, other (Patient is erythema around the left calf. Some areas of eczema with excoriation in the knee.). Absent: tenderness, pedal edema, joint swelling, calf tenderness Back exam: Present: normal inspection Neurological exam: Present: alert, oriented X3, CN II-XII intact Psychiatric exam: Present: normal affect, normal mood Skin exam: Present: warm, dry, intact, normal color. Absent: rash Course Vital Signs 08/07/19 18:23 Temperature 98.7 F Pulse Rate 95 Respiratory 18 Rate Blood Pressure 151/82 O2 Sat by Pulse 99 Oximetry Medical Decision Making - Medical Decision Making Patient is a 21-year-old male presents emergency from today for cellulitis over his left or leg. He is having this off-and-on for the past year. Last flareup was about 5-6 months ago. At this time Patient does have extensive cellulitis. Majority of the calf is circled. No fever at this time. Symptoms just started 24 hours ago. Patient's labwork was obtained. No leukocytosis. Vital signs are stable. Patient was given Rocephin, 2 g IV. Patient is a forming and start him on Bactrim and Keflex. I discussed that if his symptoms don't improve over the next 48 hours the Patient should return for reevaluation and possible admission. Patient is agreeable treatment plan. - Lab Data Result diagrams: 08/07/19 18:55 08/07/19 18:55 Lab Results 08/07/19 08/07/19 08/07/19 Range/Units 18:55 18:55 18:55 WBC 5.6 (3.8-10.6) k/uL RBC 5.20 (4.30-5.90) m/uL Hgb 16.1 (13.0-17.5) gm/dL Hct 46.0 (39.0-53.0) % MCV 88.4 (80.0-100.0) fL MCH 30.9 (25.0-35.0) pg MCHC 34.9 (31.0-37.0) g/dL RDW 12.8 (11.5-15.5) % Plt Count 252 (150-450) k/uL Neutrophils % 57 % Lymphocytes % 28 % Monocytes % 7 % Eosinophils % 2 % Basophils % 1 % Neutrophils # 3.2 (1.3-7.7) k/uL Lymphocytes # 1.6 (1.0-4.8) k/uL Monocytes # 0.4 (0-1.0) k/uL Eosinophils # 0.1 (0-0.7) k/uL Basophils # 0.1 (0-0.2) k/uL Sodium 142 (137-145) mmol/L Potassium 3.8 (3.5-5.1) mmol/L Chloride 105 (98-107) mmol/L Carbon Dioxide 25 (22-30) mmol/L Anion Gap 12 mmol/L BUN 19 (9-20) mg/dL Creatinine 1.06 (0.66-1.25) mg/dL Est GFR (CKD-EPI)AfAm >90 (>60 ml/min/1.73 sqM) Est GFR (CKD-EPI)NonAf >90 (>60 ml/min/1.73 sqM) Glucose 128 H (74-99) mg/dL Plasma Lactic Acid Bradley 1.7 (0.7-2.0) mmol/L Calcium 9.5 (8.4-10.2) mg/dL Total Bilirubin 0.5 (0.2-1.3) mg/dL AST 27 (17-59) U/L ALT 28 (21-72) U/L Alkaline Phosphatase 47 (38-126) U/L Total Protein 7.3 (6.3-8.2) g/dL Albumin 4.3 (3.5-5.0) g/dL Disposition Clinical Impression: Left leg cellulitis Disposition: HOME SELF-CARE Condition: Good Instructions (If sedation given, give patient instructions): Cellulitis (ED) Additional Instructions: Please use medication as discussed. Please follow up with family doctor if symptoms have not improved over the next two days. Please return to the emergency room if your symptoms increase or worsen or for any other concerns. Prescriptions: Sulfamethox-Tmp 800-160Mg [Bactrim DS 800-160 mg] 2 tab PO Q12HR #40 tab Cephalexin [Keflex] 500 mg PO Q6H #40 cap L.acidoph,Paracasei, B.lactis [Probiotic] 1 each PO DAILY #30 capsule Is patient prescribed a controlled substance at d/c from ED?: No Referrals: None,Stated [REFERRING] - 1-2 days Sis Stone MD [STAFF PHYSICIAN] - 1-2 days Time of Disposition: 19:40
[2019-08-07 19:14] LABS: Basophils # (A) 0.1 k/uL (0-0.2); Basophils % (A) 1 %; Eosinophils # (A) 0.1 k/uL (0-0.7); Eosinophils % (A) 2 %; HGB 16.1 gm/dL (13.0-17.5); Lymphocytes # (A) 1.6 k/uL (1.0-4.8); Lymphocytes % (A) 28 %; MCH 30.9 pg (25.0-35.0); MCHC 34.9 g/dL (31.0-37.0); MCV 88.4 fL (80.0-100.0); Mean Platelet Volume 6.1; Monocytes # (A) 0.4 k/uL (0-1.0); Monocytes % (A) 7 %; Neutrophils # (A) 3.2 k/uL (1.3-7.7); Neutrophils % (A) 57 %; Platelet Count 252 k/uL (150-450); RDW 12.8 % (11.5-15.5); WBC 5.6 k/uL (3.8-10.6)
[2019-08-07 19:25] LABS: ALT 28 U/L (21-72); AST 27 U/L (17-59); African American GFR (CKD) >90 (>60 ml/min/1.73 sqM); Albumin 4.3 g/dL (3.5-5.0); Alkaline Phosphatase 47 U/L (38-126); Anion Gap 12 mmol/L; Blood Urea Nitrogen 19 mg/dL (9-20); Calcium 9.5 mg/dL (8.4-10.2); Carbon Dioxide 25 mmol/L (22-30); Chloride 105 mmol/L (98-107); Glucose 128 mg/dL (74-99); Potassium 3.8 mmol/L (3.5-5.1); Sodium 142 mmol/L (137-145); Total Bilirubin 0.5 mg/dL (0.2-1.3); Total Protein 7.3 g/dL (6.3-8.2)
[2019-08-07] MEDS ORDERED: SULFAMETH-TMP DS STARTER PACK 2 TAB BTL PO STA (19:38)
[2019-08-07] MEDS ORDERED: ACET/COD 300 MG/30 MG STARTER PACK 6 TAB BTL PO STA (19:42)
[2019-08-07 20:12] VITALS: BP 130/83; PULSE 83; TEMP 98.3
== END 2019-08-07 20:12 | disposition home or self-care (01) ==
LOC: EC 18:11
DX: L03.116 Cellulitis of left lower limb (principal); L30.9 Dermatitis, unspecified
CPT/HCPCS: 99284; 96365; 36415; 80053; 83605; 85025; 87040; J0696

== ENCOUNTER 2019-12-03 09:12 | Observation (INO) | payer OTHER ==
[2019-12-03] MEDS ORDERED: ACETAMINOPHEN TAB 500 MG TAB PO STA (09:49)
[2019-12-03] MEDS ORDERED: SODIUM CHLORIDE 0.9% 1,000 ML IV STA ×2 (09:49→11:33)
[2019-12-03 10:58] LABS: Basophils # (A) 0.1 k/uL (0-0.2); Basophils % (A) 0 %; Eosinophils % (A) 0 %; HCT 48.3 % (39.0-53.0); HGB 16.3 gm/dL (13.0-17.5); Lymphocytes # (A) 0.6 k/uL (1.0-4.8); Lymphocytes % (A) 4 %; MCH 29.3 pg (25.0-35.0); MCHC 33.8 g/dL (31.0-37.0); MCV 86.5 fL (80.0-100.0); Mean Platelet Volume 7.5; Monocytes # (A) 0.8 k/uL (0-1.0); Monocytes % (A) 5 %; Neutrophils # (A) 15.3 k/uL (1.3-7.7); Neutrophils % (A) 90 %; Platelet Count 228 k/uL (150-450); RBC 5.58 m/uL (4.30-5.90); RDW 12.9 % (11.5-15.5); WBC 16.9 k/uL (3.8-10.6)
[2019-12-03 11:03] LABS: ALT 27 U/L (4-49); AST 35 U/L (17-59); African American GFR (CKD) >90 (>60 ml/min/1.73 sqM); Albumin 4.5 g/dL (3.5-5.0); Alkaline Phosphatase 53 U/L (38-126); Anion Gap 11 mmol/L; Blood Urea Nitrogen 22 mg/dL (9-20); C Reactive Protein 13.7 mg/L (<10.0); Calcium 9.7 mg/dL (8.4-10.2); Carbon Dioxide 25 mmol/L (22-30); Chloride 104 mmol/L (98-107); Glucose 104 mg/dL (74-99); Non-African American GFR(CKD) >90 (>60 ml/min/1.73 sqM); Potassium 4.5 mmol/L (3.5-5.1); Sodium 140 mmol/L (137-145); Total Protein 7.3 g/dL (6.3-8.2)
[2019-12-03] MEDS ORDERED: IBUPROFEN 600 MG TAB PO STA (11:35)
--- NOTE | 2019-12-03 11:43 | ED ---
Extremity Problem HPI - General Chief complaint: Extremity Problem,Nontraumatic Stated complaint: cellulitis Time Seen by Provider: 12/03/19 09:30 Source: patient Mode of arrival: ambulatory Limitations: no limitations - History of Present Illness Initial comments: Patient is a 29-year-old male presenting to emergency Department with complaints of a possible cellulitis of his left lower leg. Patient states he has a history of cellulitis in the same spot for the past year and has been seeing Dr. Foote for this. Patient states Dr. Foote thought it might be fungal in nature. Patient states he woke up this morning feeling feverish and also vomited one time. Patient states on his way to work he noticed redness starting in his left lower leg and then came to the ER. He did not take any Tylenol or Motrin for fever. He denies cough, shortness of breath, congestion. He states he has been eating and drinking and was fine yesterday. Patient has not been on antibiotics recently. He has no other complaints at this time. Upon arrival to the ER, patient was febrile at 100.0, slightly tach at 106, rest of vitals normal. - Related Data Home Medications Medication Instructions Recorded Confirmed Acetaminophen Tab [Tylenol Tab] 1,000 mg PO Q6HR PRN 12/03/19 12/03/19 Cephalexin [Keflex] 500 mg PO Q8HR 12/03/19 12/03/19 Ibuprofen [Motrin Ib] 800 mg PO Q6H PRN 12/03/19 12/03/19 Allergies Allergy/AdvReac Type Severity Reaction Status Date / Time No Known Allergies Allergy Verified 12/03/19 10:27 Review of Systems ROS Statement: Those systems with pertinent positive or pertinent negative responses have been documented in the HPI. ROS Other: All systems not noted in ROS Statement are negative. Past Medical History Past Medical History: No Reported History Additional Past Medical History / Comment(s): lt leg cellulitis History of Any Multi-Drug Resistant Organisms: None Reported Past Surgical History: No Surgical Hx Reported Past Psychological History: No Psychological Hx Reported Smoking Status: Never smoker Past Alcohol Use History: Occasional Past Drug Use History: None Reported - Past Family History Sister(s) Additional Family Medical History / Comment(s): lupus Father Additional Family Medical History / Comment(s): HTN, CHF, PPM Mother Additional Family Medical History / Comment(s): HTN General Exam - General Exam Comments Initial Comments: GENERAL: Well-appearing, well-nourished and in no acute distress. Patient appears slightly diaphoretic, sierra cheeks. HEAD: Atraumatic, normocephalic. EYES: Pupils equal round and reactive to light, extraocular movements intact, sclera anicteric, conjunctiva are normal. ENT: TMs normal, nares patent, oropharynx clear without exudates. Moist mucous membranes. NECK: Normal range of motion, supple without lymphadenopathy or JVD. LUNGS: Breath sounds clear to auscultation bilaterally and equal. No wheezes rales or rhonchi. HEART: Slightly Tachy rate and rhythm without murmurs, rubs or gallops. ABDOMEN: Soft, nontender, normoactive bowel sounds. No guarding, no rebound. No masses appreciated. : Deferred EXTREMITIES: Patient has mild pain with palpation of the left lower leg, full range of motion of the left ankle, knee. No pitting or edema. No clubbing or cyanosis. NEUROLOGICAL: Cranial nerves II through XII grossly intact. Normal speech, normal gait. PSYCH: Normal mood, normal affect. SKIN: Warm, Dry, normal turgor. Patient has a large area of erythema on the medial aspect of the left lower leg. Area was outlined. No pain to palpation. There is no abscess or abrasions seen. Limitations: no limitations Course Vital Signs 12/03/19 12/03/19 12/03/19 09:27 09:29 10:29 Temperature 100.0 F H Pulse Rate 106 H 97 Respiratory 19 20 20 Rate Blood Pressure 122/71 153/73 O2 Sat by Pulse 100 99 Oximetry 12/03/19 12/03/19 11:00 12:15 Temperature 100.0 F H Pulse Rate 98 90 Respiratory 20 20 Rate Blood Pressure 132/73 140/81 O2 Sat by Pulse 99 99 Oximetry Medical Decision Making - Medical Decision Making Patient is a 21-year-old male presenting with possible cellulitis of the left lower leg. He has been seeing Dr. Foote for this issue. Patient was febrile and tachycardia upon arrival. Patient does have a large area of erythema on the medial aspect of his left lower leg. Mild pain with palpation. labs reveal leukocytosis of 16.9 with shift 15.3, lactic acid is 2.0, CRP is 13.7. Influenza is negative. Patient was given Tylenol, fluids, 1 g of Rocephin. Patient continues to be febrile at 101.0. Case was discussed with Dr. Mana montiel who accepted patient for admission. Patient will be continued on fluids and IV antibiotics with consult to Dr. Foote. Patient is agreement with this plan of care. Case was discussed with Dr. Schulz who agrees with this plan of care. - Lab Data Result diagrams: 12/03/19 10:15 12/03/19 10:15 Lab Results 12/03/19 12/03/19 12/03/19 Range/Units 10:15 10:15 10:15 WBC 16.9 H (3.8-10.6) k/uL RBC 5.58 (4.30-5.90) m/uL Hgb 16.3 (13.0-17.5) gm/dL Hct 48.3 (39.0-53.0) % MCV 86.5 (80.0-100.0) fL MCH 29.3 (25.0-35.0) pg MCHC 33.8 (31.0-37.0) g/dL RDW 12.9 (11.5-15.5) % Plt Count 228 (150-450) k/uL Neutrophils % 90 % Lymphocytes % 4 % Monocytes % 5 % Eosinophils % 0 % Basophils % 0 % Neutrophils # 15.3 H (1.3-7.7) k/uL Lymphocytes # 0.6 L (1.0-4.8) k/uL Monocytes # 0.8 (0-1.0) k/uL Eosinophils # 0.0 (0-0.7) k/uL Basophils # 0.1 (0-0.2) k/uL ESR 2 (0-15) mm/hr Sodium 140 (137-145) mmol/L Potassium 4.5 (3.5-5.1) mmol/L Chloride 104 (98-107) mmol/L Carbon Dioxide 25 (22-30) mmol/L Anion Gap 11 mmol/L BUN 22 H (9-20) mg/dL Creatinine 0.99 (0.66-1.25) mg/dL Est GFR (CKD-EPI)AfAm >90 (>60 ml/min/1.73 sqM) Est GFR (CKD-EPI)NonAf >90 (>60 ml/min/1.73 sqM) Glucose 104 H (74-99) mg/dL Plasma Lactic Acid Bradley (0.7-2.0) mmol/L Calcium 9.7 (8.4-10.2) mg/dL Total Bilirubin 1.0 (0.2-1.3) mg/dL AST 35 (17-59) U/L ALT 27 (4-49) U/L Alkaline Phosphatase 53 (38-126) U/L C-Reactive Protein 13.7 H (<10.0) mg/L Total Protein 7.3 (6.3-8.2) g/dL Albumin 4.5 (3.5-5.0) g/dL Influenza Type A RNA Not Detected (Not Detectd) Influenza Type B (PCR) Not Detected (Not Detectd) 12/03/19 Range/Units 10:15 WBC (3.8-10.6) k/uL RBC (4.30-5.90) m/uL Hgb (13.0-17.5) gm/dL Hct (39.0-53.0) % MCV (80.0-100.0) fL MCH (25.0-35.0) pg MCHC (31.0-37.0) g/dL RDW (11.5-15.5) % Plt Count (150-450) k/uL Neutrophils % % Lymphocytes % % Monocytes % % Eosinophils % % Basophils % % Neutrophils # (1.3-7.7) k/uL Lymphocytes # (1.0-4.8) k/uL Monocytes # (0-1.0) k/uL Eosinophils # (0-0.7) k/uL Basophils # (0-0.2) k/uL ESR (0-15) mm/hr Sodium (137-145) mmol/L Potassium (3.5-5.1) mmol/L Chloride (98-107) mmol/L Carbon Dioxide (22-30) mmol/L Anion Gap mmol/L BUN (9-20) mg/dL Creatinine (0.66-1.25) mg/dL Est GFR (CKD-EPI)AfAm (>60 ml/min/1.73 sqM) Est GFR (CKD-EPI)NonAf (>60 ml/min/1.73 sqM) Glucose (74-99) mg/dL Plasma Lactic Acid Bradley 2.0 (0.7-2.0) mmol/L Calcium (8.4-10.2) mg/dL Total Bilirubin (0.2-1.3) mg/dL AST (17-59) U/L ALT (4-49) U/L Alkaline Phosphatase (38-126) U/L C-Reactive Protein (<10.0) mg/L Total Protein (6.3-8.2) g/dL Albumin (3.5-5.0) g/dL Influenza Type A RNA (Not Detectd) Influenza Type B (PCR) (Not Detectd) Disposition Clinical Impression: Left leg cellulitis, Fever, Leukocytosis Disposition: ADMITTED IP TO THIS [facility] Condition: Stable Is patient prescribed a controlled substance at d/c from ED?: No Decision Date: 12/03/19 Decision Time: 11:45
[2019-12-03 11:45] LABS: Erythrocyte Sedimentation Rate 2 mm/hr (0-15)
[2019-12-03] MEDS ORDERED: VANCOMYCIN IV PER PHARMACY 1 EACH MISC MISCELLANE PRN (11:45)
[2019-12-03] MEDS ORDERED: NALOXONE 0.4 MG/ML 1 ML VIAL IV PRN (11:46)
[2019-12-03] MEDS ORDERED: ONDANSETRON 4 MG/2 ML VIAL IVP PRN (11:46)
[2019-12-03] MEDS ORDERED: KETOROLAC 30 MG/ML 1 ML VIAL IVP PRN (11:46)
[2019-12-03] MEDS ORDERED: VANCOMYCIN 2,250 MG in SODIUM CHLORIDE 0.9% 500 ML 500 ML IVPB STA (11:56)
[2019-12-03] MEDS: SODIUM CHLORIDE 0.9% 1,000 ML IV SCH (13:05)
[2019-12-03] MEDS ORDERED: IBUPROFEN 400 MG TAB PO PRN (14:42)
[2019-12-03] MEDS ORDERED: HYDROcodone/APAP 5-325MG 1 EACH TAB PO PRN (14:42)
--- NOTE | 2019-12-03 14:44 | P.HPIM ---
History of Present Illness H&P Date: 12/03/19 Chief Complaint: left leg cellulitis Patient is a 29-year-old male with prior episodes of cellulitis, athlete's foot, and prior yeast infections who presented to the hospital with complaints of overall malaise and left leg pain with redness. In the ER he underwent an extensive evaluation. He had a fever of 100 and the pulse of 106. His labs showed WBC 16.9, and CRP 13.7. He was given a dose of rocephin. He was admitted for cellulitis with sepsis. Vanco was added. Patient seen and examined at bedside. He presented due to fever today, he did not take his temperature. He had general malaise and left work early. He took a nap and woke up with redness of the left lower extremity Left leg cellulitis approximately 8 times over the last 15 months. He has intermittent chronic swelling of the left lower extremity. Took 1 dose of keflex this morning, last antibiotics prior was July 2019 for cellulitis. Pain in the left groin thinks due to a lymphnode Burning sensation in the left calf. + vomiting X 1 No diarrhea or constipation No chest pain, SOB, no coughing, no runny nose Appetite intact Dr. Foote has seen him multiple times and thinks his cellulitis is due to athletes foot, no athletes foot at this time. Review of Systems Pertinent positives and negatives as discussed in HPI, a complete review of systems was performed and all other systems are negative. 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 - Past Family History Sister(s) Additional Family Medical History / Comment(s): lupus Father Additional Family Medical History / Comment(s): HTN, CHF, PPM Mother Additional Family Medical History / Comment(s): HTN Medications and Allergies Home Medications Medication Instructions Recorded Confirmed Type Acetaminophen Tab [Tylenol Tab] 1,000 mg PO Q6HR PRN 12/03/19 12/03/19 History Cephalexin [Keflex] 500 mg PO Q8HR 12/03/19 12/03/19 History Ibuprofen [Motrin Ib] 800 mg PO Q6H PRN 12/03/19 12/03/19 History Allergies Allergy/AdvReac Type Severity Reaction Status Date / Time No Known Allergies Allergy Verified 12/03/19 10:27 Physical Exam Osteopathic Statement: *. No significant issues noted on an osteopathic structural exam other than those noted in the History and Physical/Consult. Vitals: Vital Signs Temp Pulse Pulse Resp BP BP Pulse Ox 12/03/19 13:08 98.1 F 107 H 16 121/67 99 12/03/19 12:15 100.0 F H 90 20 140/81 99 12/03/19 11:00 98 20 132/73 99 12/03/19 10:29 97 20 153/73 99 12/03/19 09:29 20 12/03/19 09:27 100.0 F H 106 H 19 122/71 100 Intake and Output 12/02/19 12/03/19 12/03/19 22:59 06:59 14:59 Other: Weight 132.086 kg General: [ill appearing, diaphoretic], [no distress], [appears at stated age], [normal weight] Derm: [erythema with warmth of left calf, area of eczema left knee] [no unusual ecchymoses], [warm], [dry] Head: [atraumatic], [normocephalic], [symmetric] Eyes: [EOMI], [no lid lag], [anicteric sclera], [pupils equal round reactive to light] ENT: [Nose and ears atraumatic], [no thrush], [no pharyngeal erythema] Neck: [No thyromegaly], [no cervical lymphadenopathy], [trachea midline], [supple] Mouth: [no lip lesion], [mucus membranes moist] Cardiovascular: [S1S2 reg], [no murmur], [positive posterior tibial pulse bilateral], [no edema], [capillary refill less than 2 seconds] Lungs: [CTA bilateral], [no rhonchi, no rales] , [no accessory muscle use] Abdominal: [soft], [ nontender to palpation], [no guarding], [no appreciable organomegaly], [normal bowel sounds] Ext: [no gross muscle atrophy], [muscle strength 5 out of 5 in all 4 extremities grossly], [no contractures], + enlarged mobile lymphnode left lower extremity Neuro: [ CN II-XI grossly intact], [light touch intact all 4 extremities], [finger to nose within normal limits], Psych: [Alert], [oriented], [appropriate affect] Results CBC & Chem 7: 12/03/19 10:15 12/03/19 10:15 Labs: Abnormal Lab Results - Last 24 Hours (Table) 12/03/19 12/03/19 Range/Units 10:15 10:15 WBC 16.9 H (3.8-10.6) k/uL Neutrophils # 15.3 H (1.3-7.7) k/uL Lymphocytes # 0.6 L (1.0-4.8) k/uL BUN 22 H (9-20) mg/dL Glucose 104 H (74-99) mg/dL C-Reactive Protein 13.7 H (<10.0) mg/L Thrombosis Risk Factor Assmnt - DVT/VTE Prophylaxis DVT/VTE Prophylaxis: Low risk, early ambulation encouraged - Choose All That Apply Any of the Below Risk Factors Present?: No Other Risk Factors: No Other congenital or acquired thrombophilia - If yes, enter type in comment: No Thrombosis Risk Factor Assessment Level: Very Low Risk Assessment and Plan Assessment: Left lower extremity cellulitis with sepsis - Vanco - IVF - repeat CBC in AM - Blood cultures pending - elevate leg Eczema - Hydrocortizone cream The patient is admitted with an anticipated greater than 2 midnight stay for evaluation of Cellulitis with sepsis . Surrogate decision-maker: Sister Sis Gonzales- [phone] CODE STATUS:Full DVT prophylaxis: SCDs Discussed with: patient, nursing, ED PA Anticipated discharge date: 1-[address]: home A total of [35] minutes was spent on the care of this complex patient more than 50% of the time was spent in counseling and care coordination.
[2019-12-03] MEDS: VANCOMYCIN 2,250 MG in SODIUM CHLORIDE 0.9% 500 ML 500 ML IVPB SCH (21:09)
[2019-12-03] MEDS: HYDROCORTISONE 1% CREAM 30 GM TUBE TOPICAL SCH (21:10)
[2019-12-03] MEDS: ACETAMINOPHEN TAB 325 MG TAB PO PRN (21:17)
[2019-12-04] MEDS: SODIUM CHLORIDE 0.9% 1,000 ML IV SCH ×2 (01:18→13:11)
[2019-12-04] MEDS: ACETAMINOPHEN TAB 325 MG TAB PO PRN ×2 (05:15→21:54)
[2019-12-04] MEDS: VANCOMYCIN 2,250 MG in SODIUM CHLORIDE 0.9% 500 ML 500 ML IVPB SCH ×3 (05:16→21:54)
[2019-12-04] MEDS: HYDROCORTISONE 1% CREAM 30 GM TUBE TOPICAL SCH ×4 (08:02→21:54)
[2019-12-04 08:36] LABS: ALT 30 U/L (4-49); AST 34 U/L (17-59); African American GFR (CKD) >90 (>60 ml/min/1.73 sqM); Albumin 3.7 g/dL (3.5-5.0); Alkaline Phosphatase 49 U/L (38-126); Anion Gap 7 mmol/L; Blood Urea Nitrogen 13 mg/dL (9-20); Calcium 9.2 mg/dL (8.4-10.2); Carbon Dioxide 24 mmol/L (22-30); Chloride 109 mmol/L (98-107); Glucose 101 mg/dL (74-99); Magnesium 1.9 mg/dL (1.6-2.3); Non-African American GFR(CKD) >90 (>60 ml/min/1.73 sqM); Potassium 4.2 mmol/L (3.5-5.1); Sodium 140 mmol/L (137-145); Total Bilirubin 0.9 mg/dL (0.2-1.3); Total Protein 6.7 g/dL (6.3-8.2)
[2019-12-04 12:03] LABS: Hepatitis A Antibody IgM Non-Reactive (Non-Reactive); Hepatitis B Core IgM Non-Reactive (Non-Reactive); Hepatitis B Surface Antigen Non-Reactive (Non-Reactive); Hepatitis C IgG Antibody Non-Reactive (Non-Reactive)
[2019-12-04 12:49] LABS: HGB 16.3 gm/dL (13.0-17.5); MCH 29.7 pg (25.0-35.0); MCHC 33.2 g/dL (31.0-37.0); MCV 89.6 fL (80.0-100.0); Mean Platelet Volume 8.4; Platelet Count 239 k/uL (150-450); RBC 5.47 m/uL (4.30-5.90); RDW 13.1 % (11.5-15.5); WBC 10.9 k/uL (3.8-10.6)
[2019-12-04 14:30] VITALS: RESP 16
[2019-12-04] MEDS ORDERED: CLINDAMYCIN 600 MG in DEXTROSE 5% IN WATER 50 ML IVPB ONE ×2 (15:00)
--- NOTE | 2019-12-04 16:59 | P.PN ---
Subjective Progress Note Date: 12/04/19 Principal diagnosis: cellulitis Patient is a 29-year-old male with prior episodes of cellulitis, athlete's foot, and prior yeast infections who presented to the hospital with complaints of overall malaise and left leg pain with redness. In the ER he underwent an extensive evaluation. He had a fever of 100 and the pulse of 106. His labs showed WBC 16.9, and CRP 13.7. He was given a dose of rocephin. He was admitted for cellulitis with sepsis. Vanco was added. The morning after admission he had been afebrile for 12 hours, his white blood cell count decr eased to 10.9. He had some extension of his area of redness. Patient seen and examined at bedside with family present. He reports that he is having some pain in his left calf, no nausea, no vomiting, no diarrhea, and no shortness of breath. They are concerned that this is not cellulitis. His aldo pus. I explained to them that I doubt lupus with his elevated white blood cell count and fevers. We discussed that he should have his inflammatory markers rechecked once his infection has cleared his screening marker for autoimmune disease. They're also concerned that this is not cellulitis as he does not have a large open wound. I explained to them that cellulitis is an infection of the outer layers of the skin and there does not have to be a large open wound for cellulitis to occur. I also suggest that have chronic out patient infectious disease follow-up to consider things like suppressive therapy for cellulitis. Objective - Vital Signs Vital signs: Vital Signs Temp 98.0 F 12/04/19 14:30 Pulse 88 12/04/19 14:30 Resp 16 12/04/19 14:30 BP 141/87 12/04/19 14:30 Pulse Ox 98 12/04/19 14:30 Intake & Output 12/03/19 12/04/19 12/04/19 18:59 06:59 18:59 Intake Total 400 400 Balance 400 400 Weight 132.086 kg Intake: Oral 400 400 Other: # Voids 0 1 2 - Exam General: ill appearing, no distress, appears at stated age Derm: erythema and warmth left lower extremity, past the line of demarcation yesterday, Area of raised flaking left lateral knee, scaling of skin over anterior thigh, warm, dry Head: atraumatic, normocephalic, symmetric Eyes: EOMI, no lid lag, anicteric sclera Mouth: no lip lesion, mucus membranes moist Cardiovascular: S1S2 reg, no murmur, positive posterior tibial pulse bilateral, Lungs: CTA bilateral, no rhonchi, no rales , no accessory muscle use Abdominal: soft, nontender to palpation, no guarding, no appreciable organomegaly Ext: no gross muscle atrophy, no edema, no contractures Neuro: CN II-XI grossly intact, no focal neuro deficits Psych: Alert, oriented, appropriate affect - Labs CBC & Chem 7: 12/04/19 07:37 12/04/19 07:37 Labs: Abnormal Lab Results - Last 24 Hours (Table) 12/04/19 12/04/19 Range/Units 07:37 07:37 WBC 10.9 H (3.8-10.6) k/uL Chloride 109 H (98-107) mmol/L Glucose 101 H (74-99) mg/dL Microbiology - Last 24 Hours (Table) 12/03/19 10:25 Blood Culture - Preliminary Blood No Growth after 24 hours Assessment and Plan Assessment: Left lower extremity cellulitis with sepsis - Vanco, clinda X 1 to help with possible toxin production - IVF - repeat CBC in AM - Blood cultures negative to date - elevate leg - hep negative - HIV pending Eczema - Hydrocortizone cream Joint pain, chronic - outpatient evaluation with Dr. Hraris CODE STATUS:Full DVT prophylaxis: SCDs Discussed with: patient, nursing, family Anticipated discharge date: 1-[address]: home A total of [25] minutes was spent on the care of this complex patient more than 50% of the time was spent in counseling and care coordination.
[2019-12-04 20:43] LABS: HIV 2 AB Non-Reactive (Non-Reactive); HIV AB P24 Non-Reactive (Non-Reactive); HIV P24 AG Non-Reactive (Non-Reactive)
[2019-12-05] MEDS: SODIUM CHLORIDE 0.9% 1,000 ML IV SCH (03:13)
[2019-12-05] MEDS ORDERED: VANCOMYCIN TROUGH DUE 1 EACH MISC MISCELLANE ONE (05:00)
[2019-12-05 05:53] LABS: ALT 26 U/L (4-49); AST 25 U/L (17-59); African American GFR (CKD) >90 (>60 ml/min/1.73 sqM); Albumin 3.9 g/dL (3.5-5.0); Alkaline Phosphatase 44 U/L (38-126); Anion Gap 7 mmol/L; Blood Urea Nitrogen 14 mg/dL (9-20); Carbon Dioxide 26 mmol/L (22-30); Chloride 107 mmol/L (98-107); Glucose 104 mg/dL (74-99); Non-African American GFR(CKD) >90 (>60 ml/min/1.73 sqM); Potassium 4.3 mmol/L (3.5-5.1); Sodium 140 mmol/L (137-145); Total Bilirubin 0.5 mg/dL (0.2-1.3); Total Protein 6.4 g/dL (6.3-8.2)
[2019-12-05] MEDS: VANCOMYCIN 2,250 MG in SODIUM CHLORIDE 0.9% 500 ML 500 ML IVPB SCH ×2 (06:15→14:38)
[2019-12-05] MEDS: HYDROCORTISONE 1% CREAM 30 GM TUBE TOPICAL SCH ×4 (07:20→21:07)
[2019-12-05] MEDS ORDERED: CLINDAMYCIN 600 MG in DEXTROSE 5% IN WATER 50 ML IVPB STA ×2 (09:13)
[2019-12-05 09:28] LABS: HCT 45.8 % (39.0-53.0); HGB 15.3 gm/dL (13.0-17.5); MCH 29.6 pg (25.0-35.0); MCHC 33.3 g/dL (31.0-37.0); MCV 88.8 fL (80.0-100.0); Mean Platelet Volume 8.4; Platelet Count 221 k/uL (150-450); RBC 5.16 m/uL (4.30-5.90); WBC 5.1 k/uL (3.8-10.6)
--- NOTE | 2019-12-05 11:05 | P.PN ---
Subjective Progress Note Date: 12/05/19 (delayed charting seen at 0915) Principal diagnosis: cellulitis Patient is a 29-year-old male with prior episodes of cellulitis, athlete's foot, and prior yeast infections who presented to the hospital with complaints of overall malaise and left leg pain with redness. In the ER he underwent an extensive evaluation. He had a fever of 100 and the pulse of 106. His labs showed WBC 16.9, and CRP 13.7. He was given a dose of rocephin. He was admitted for cellulitis with sepsis. Vanco was added. The morning after admission he had been afebrile for 12 hours, his white blood cell count decreased to 10.9. He had some extension of his area of redness. The morning of 12/05 his redness had improved and the area was smaller, his WBC couont had normalized. Patient seen and examined at bedside. He reports that he continues to have some pain in his left medial calf, no nausea, vomiting, diarrhea, or shortness of breath. Getting sick of being in the hospital with feeling well otherwise. Objective - Vital Signs Vital signs: Vital Signs Temp 98.0 F 12/05/19 05:57 Pulse 66 12/05/19 05:57 Resp 16 12/05/19 05:57 BP 145/91 12/05/19 05:57 Pulse Ox 100 12/05/19 05:57 Intake & Output 12/04/19 12/05/19 12/05/19 18:59 06:59 18:59 Intake Total 400 Balance 400 Intake: Oral 400 Other: # Voids 2 2 - Exam General:non toxic, no distress, appears at stated age Derm: erythema and warmth left lower extremity, not pas the line of demarcation, less warmth and area improving, Area of raised flaking left lateral knee, scaling of skin over anterior [place], warm, dry Eyes: EOMI, no lid lag, anicteric sclera Mouth: no lip lesion, mucus membranes moist Cardiovascular: S1S2 reg, no murmur, positive posterior tibial pulse bilateral, Lungs: CTA bilateral, no rhonchi, no rales , no accessory muscle use Abdominal: soft, nontender to palpation, no guarding, no appreciable organomegaly Ext: no gross muscle atrophy, no edema, no contractures Neuro: CN II-XI grossly intact, no focal neuro deficits Psych: Alert, oriented, appropriate affect - Labs CBC & Chem 7: 12/05/19 05:19 12/05/19 05:19 Labs: Abnormal Lab Results - Last 24 Hours (Table) 12/04/19 12/05/19 Range/Units 07:37 05:19 WBC 10.9 H (3.8-10.6) k/uL Glucose 104 H (74-99) mg/dL Microbiology - Last 24 Hours (Table) 12/03/19 10:25 Blood Culture - Preliminary Blood No Growth after 24 hours Assessment and Plan Assessment: Left lower extremity cellulitis - Vanco, clinda X 1 additional dose - IVF cmpleted - repeat CBC in AM - Blood cultures negative to date - elevate leg - hep negative - HIV negative Eczema - Hydrocortizone cream Joint pain, chronic - outpatient evaluation with Dr. Harris sepsis, resolved CODE STATUS:Full DVT prophylaxis: SCDs Discussed with: patient, nursing Anticipated discharge date: in AM Anticipated discharge place: home A total of 25 minutes was spent on the care of this complex patient more than 50% of the time was spent in counseling and care coordination.
[2019-12-05] MEDS: VANCOMYCIN 2,000 MG in SODIUM CHLORIDE 0.9% 500 ML 500 ML IVPB SCH (21:06)
[2019-12-06] MEDS: VANCOMYCIN 2,000 MG in SODIUM CHLORIDE 0.9% 500 ML 500 ML IVPB SCH (05:24)
[2019-12-06 06:19] VITALS: BP 128/84; PULSE 67; TEMP 97.4
[2019-12-06] MEDS ORDERED: FLUCONAZOLE 150 MG TAB PO STA (09:08)
[2019-12-06 10:04] LABS: HCT 50.1 % (39.0-53.0); HGB 16.8 gm/dL (13.0-17.5); MCH 29.9 pg (25.0-35.0); MCHC 33.6 g/dL (31.0-37.0); MCV 88.9 fL (80.0-100.0); Mean Platelet Volume 7.8; Platelet Count 262 k/uL (150-450); RBC 5.63 m/uL (4.30-5.90); RDW 12.9 % (11.5-15.5); WBC 5.4 k/uL (3.8-10.6)
[2019-12-06 10:29] LABS: African American GFR (CKD) >90 (>60 ml/min/1.73 sqM); Anion Gap 10 mmol/L; Blood Urea Nitrogen 16 mg/dL (9-20); Calcium 9.2 mg/dL (8.4-10.2); Carbon Dioxide 23 mmol/L (22-30); Chloride 107 mmol/L (98-107); Glucose 91 mg/dL (74-99); Non-African American GFR(CKD) >90 (>60 ml/min/1.73 sqM); Sodium 140 mmol/L (137-145)
[2019-12-06 10:38] LABS: Potassium 4.7 mmol/L (3.5-5.1)
[2019-12-06] MEDS: HYDROCORTISONE 1% CREAM 30 GM TUBE TOPICAL SCH (10:39)
--- NOTE | 2019-12-06 11:02 | P.DS ---
Providers Date of admission: 12/03/19 11:57 Expected date of discharge: 12/06/19 Attending physician: Rosa Negro DO Primary care physician: Deb Harris Hospital Course: Discharge Diagnosis: Left lower extremity cellulitis with sepsis Eczema Chronic Joint Pain Hx of recurrent cellulitis Lizzeth groin infection Hospital Course: Patient is a 29-year-old male with prior episodes of cellulitis, athlete's foot, and prior yeast infections who presented to the hospital with complaints of overall malaise and left leg pain with redness. In the ER he underwent an extensive evaluation. He had a fever of 100 and the pulse of 106. His labs showed WBC 16.9, and CRP 13.7. He was given a dose of rocephin. He was admitted for cellulitis with sepsis. Vanco was added. The morning after admission he had been afebrile for 12 hours, his white blood cell count decreased to 10.9. He had some extension of his area of redness. The morning of /5 his redness had improved and the area was smaller, his WBC count had normalized. He did develop a lizzeth groin infection. He heaptitis pannel and HIV were negative. He continued to improve and was determined stable for discharge home. He will complete a course of bactrim and Augmentin for 5 days, He will follow-up Dr. Lopez to see if he is a candidate for suppressive therapy. Patient seen and examined at bedside. No pain, redness improving, feeling better. Has an appointment with Dr. Cardenas today for assessment of possible lupus. Vital signs reviewed and stable. General: non toxic, no distress, appears at stated age Derm: erythema left calf is greatly improved, no warmth, lizzeth left sanjay, warm, dry Head: atraumatic, normocephalic, symmetric Eyes: EOMI, no lid lag, anicteric sclera Mouth: no lip lesion, mucus membranes moist Cardiovascular: S1S2 reg, no murmur, positive posterior tibial pulse bilateral, Lungs: CTA bilateral, no rhonchi, no rales , no accessory muscle use Abdominal: soft, nontender to palpation, no guarding, no appreciable organomegaly Ext: no gross muscle atrophy, no edema, no contractures Neuro: CN II-XI grossly intact, no focal neuro deficits Psych: Alert, oriented, appropriate affect A total of 35 minutes of time were spent preparing this complex discharge summary . Patient Condition at Discharge: Stable Plan - Discharge Summary New Discharge Prescriptions: New Amoxic-Pot Clav 875-125Mg [Augmentin 875-125] 1 tab PO Q12HR #10 tablet Sulfamethox-Tmp 800-160Mg [Bactrim DS 800-160 mg] 1 tab PO Q12HR #10 tab Hydrocortisone Cream [Hydrocortisone 1% Cream] 1 applic TOPICAL QID applic Fluconazole [Diflucan] 150 mg PO ONCE #1 tab Continue Acetaminophen Tab [Tylenol] 1,000 mg PO Q6HR PRN PRN Reason: Pain Or Fever > 100.5 Ibuprofen [Motrin Ib] 800 mg PO Q6H PRN PRN Reason: Pain Or Fever > 100.5 Discontinued Cephalexin [Keflex] 500 mg PO Q8HR Discharge Medication List Acetaminophen Tab [Tylenol] 1,000 mg PO Q6HR PRN 12/03/19 [History] Ibuprofen [Motrin Ib] 800 mg PO Q6H PRN 12/03/19 [History] Amoxic-Pot Clav 875-125Mg [Augmentin 875-125] 1 tab PO Q12HR #10 tablet 12/06/19 [Rx] Fluconazole [Diflucan] 150 mg PO ONCE #1 tab 12/06/19 [Rx] Hydrocortisone Cream [Hydrocortisone 1% Cream] 1 applic TOPICAL QID applic 12/06/19 [Rx] Sulfamethox-Tmp 800-160Mg [Bactrim DS 800-160 mg] 1 tab PO Q12HR #10 tab 12/06/19 [Rx] Follow up Appointment(s)/Referral(s): Deb Harris MD [Primary Care Provider] - 1-2 days Activity/Diet/Wound Care/Special Instructions: Activity: as tolerate Diet: regular Special Instructions: [place] compression socks [facility], [place] [address] Discharge Disposition: HOME SELF-CARE
[2019-12-07] MEDS ORDERED: VANCOMYCIN TROUGH DUE 1 EACH MISC MISCELLANE ONE (05:00)
== END 2019-12-06 12:20 | disposition home or self-care (01) ==
LOC: EC 09:12 → INTOOBSV 11:57 → 6NMEDSUR 11:57 → UNDODISIN 12-06 12:20
PROVIDERS: ADMIT Internal Medicine; ATTEND Internal Medicine
DX: A41.9 Sepsis, unspecified organism (principal); L03.116 Cellulitis of left lower limb; B35.3 Tinea pedis; G89.29 Other chronic pain; L30.9 Dermatitis, unspecified; Z82.49 Family history of ischemic heart disease and other diseases of the circulatory system; Z87.891 Personal history of nicotine dependence; B37.2 Candidiasis of skin and nail; Z79.1 Long term (current) use of non-steroidal anti-inflammatories (NSAID); Z79.899 Other long term (current) drug therapy; M25.50 Pain in unspecified joint
CPT/HCPCS: 96376; 96366 ×4; 96367; 96361; 96365; 99284; 36415; 80053 ×3; 80048; 80074; 85652; 83605; 83735; 85025; 85027 ×3; 80202; 86140; 87040; 87502; 87390; G0378 ×4; J3370 ×4; J0696

== ENCOUNTER → 2020-04-29 | Outpatient (CLI) | payer OTHER ==
--- NOTE | 2020-04-29 21:48 | CONS ---
CONSULTATION REASON FOR CONSULTATION: Sleep apnea. This patient is 30 and he has been having loud snoring and has been told by his fiancee that he quits breathing at night. At same time, the patient has excessive tiredness and sleepiness during the day. He works in [employer] ([employer]) and drives back and forth from [place]. On the way back he gets tired, but had never to the point where he falls asleep. He occasionally wakes up choking and gasping for air. He is waking up with a dry mouth in the morning. He wakes up tired in the morning. He has trouble paying attention. He feels foggy and sleepy and tired and has issues with memory and concentration. He goes to bed between 10 and 11 p.m. and wakes up between 4 and 5 in the morning. On weekends he wakes up at 7 to 8 a.m. He is averaging around 7 hours of sleep. It takes him a few minutes to fall asleep. His fiancee wakes him up to move to his side, knowing that he is snoring and his apneas get worse when he is on his back. He has gained around 40 pounds over the past 10 years at least. No sleep paralysis. No hallucinations. No cataplexy. He is otherwise healthy. PAST MEDICAL HISTORY: Negative. SURGICAL HISTORY: Negative. DRUG ALLERGIES: NOT KNOWN. MEDICATIONS: None. SOCIAL HISTORY: He smokes one pack a day. No history of alcoholism. No history of IV drugs. FAMILY HISTORY: Mother is healthy. Father is also healthy. REVIEW OF SYSTEMS: Fourteen-point review of systems was done. Positive findings were all mentioned above in the history of present illness. PHYSICAL EXAMINATION: BP is 150/100, pulse 74, respirations 16, temperature 98.2, saturation 99% on room air. Height is 6 feet 4 inches. Weight is 280. BMI 35.4. Neck size is 17-3/4 inches. GENERAL APPEARANCE: Calm, comfortable. HEAD: Atraumatic, normocephalic. NECK: Supple. No JVD. No goiter or neck masses. Mallampati class IV. LUNGS: Clear to auscultation. HEART: Heart sounds are regular rate and rhythm. Normal S1, S2. No S3, S4. No murmurs. ABDOMEN: Soft, nontender. No organomegaly. EXTREMITIES: No edema. No cyanosis or clubbing. IMPRESSION: 1. Hypersomnia, [place] score of 14. High clinical suspicion for obstructive sleep apnea. 2. Loud snoring. 3. Witnessed apneas. 4. Obesity with a body mass index of 35.1. 5. Hypertension. PLAN: 1. Report back to the PCP regarding the elevated blood pressure. 2. Weight loss. 3. Proceed with a home sleep study to investigate this patient for sleep apnea and decide on treatment accordingly. MMODL / IJN: [id number] /
== END | disposition home or self-care (01) ==
LOC: SLEEP 16:43
PROVIDERS: ATTEND Internal Medicine Critical Care Medicine
DX: G47.10 Hypersomnia, unspecified (principal); E66.9 Obesity, unspecified; I10 Essential (primary) hypertension; F17.200 Nicotine dependence, unspecified, uncomplicated; Z68.35 Body mass index [BMI] 35.0-35.9, adult
CPT/HCPCS: 99211

== ENCOUNTER → 2020-11-11 | Outpatient (CLI) | payer OTHER ==
--- NOTE | 2020-11-11 19:00 | XR ---
EXAMINATION TYPE: XR chest 2V DATE OF EXAM: 11/11/2020 COMPARISON: None HISTORY: 30-year-old male shortness of breath TECHNIQUE: Frontal and lateral views FINDINGS: Heart normal size. Aorta and pulmonary vasculature within normal limits. No consolidation or pleural effusion is seen. IMPRESSION: No acute process identified.
== END | disposition home or self-care (01) ==
LOC: RADXRMAIN 16:20
PROVIDERS: ATTEND Family Medicine
DX: R06.02 Shortness of breath (principal)
CPT/HCPCS: 71046

== ENCOUNTER 2020-12-24 11:23 | Day surgery (SDC) | payer OTHER ==
[2020-12-23 11:49] VITALS: BMI 34.0
[~2020-12-24 11:23] MED LIST: DEXAMETHASONE SOD PHOSPHATE 4 MG/ML 1 ML VIAL IV ONE; LACTATED RINGERS 1,000 ML IV SCH; LIDOCAINE 1% (10MG/ML) FOR IV START INTRADERMA PRN
[2020-12-24] MEDS: OXYMETAZOLINE 0.05% NASL SPRAY 1 SPRAY BOTTLE ONE ×5 (12:03→12:23)
[2020-12-24] MEDS: ONDANSETRON 4 MG/2 ML VIAL IVP STA ×2 (12:28→15:13)
[2020-12-24] MEDS ORDERED: FAMOTIDINE 20 MG/2 ML VIAL IVP ONE (13:15)
[2020-12-24] MEDS ORDERED: fentaNYL (PF) 50 MCG/ML 2 ML AMP ONE (13:22)
[2020-12-24] MEDS ORDERED: SUCCINYLCHOLINE CHLORIDE VIAL 200 MG/10 ML VIAL IV ONE (13:22)
[2020-12-24] MEDS ORDERED: MIDAZOLAM 2 MG/2 ML VIAL ONE (13:22)
[2020-12-24] MEDS ORDERED: PROPOFOL 10 MG/ML 20 ML VIAL IV ONE (13:22)
[2020-12-24] MEDS ORDERED: LIDOCAINE 1% INJ 10MG/ML (20 ML MDV) ONE (13:22)
[2020-12-24] MEDS ORDERED: DEXAMETHASONE SOD PHOSPHATE 10 MG/ML 1 ML VIAL ONE (13:22)
[2020-12-24] MEDS ORDERED: KETAMINE 10 MG/ML 20 ML VIAL ONE (13:22)
[2020-12-24] MEDS ORDERED: GLYCOPYRROLATE 0.2 MG/ML 2 ML VIAL ONE (13:22)
[2020-12-24] MEDS ORDERED: HYDROmorphone (PF) 1 MG/ML ONE (13:22)
[2020-12-24] MEDS ORDERED: ROCURONIUM 10 MG/ML (5 ML VIAL) IV ONE (13:22)
[2020-12-24] MEDS ORDERED: NEOSTIGMINE 1 MG/ML 10 ML VIAL ONE (13:22)
[2020-12-24] MEDS ORDERED: LIDOCAINE 1%-EPI 1:100,000 20 ML VIAL SUBMUCOSAL ONE ×2 (13:40)
[2020-12-24] MEDS ORDERED: BACITRACIN ZINC 500 UNIT/GM OINT 28.4 GM TUBE TOPICAL ONE (14:42)
[2020-12-24] MEDS ORDERED: LACTATED RINGERS 1,000 ML IV ONE (14:44)
--- NOTE | 2020-12-24 15:07 | P.OP ---
Date of Procedure: 12/24/20 Preoperative Diagnosis: Deviated nasal septum Inferior turbinate hypertrophy Adenotonsillar hypertrophy Obstructive sleep apnea Postoperative Diagnosis: Same Procedure(s) Performed: Septoplasty Outfractured and submucous resection of the inferior turbinates Adenotonsillectomy Uvulopalatopharyngoplasty Anesthesia: RAUL Surgeon: Paul Madrid Estimated Blood Loss (ml): 10 Pathology: other (Nasal septal bone and cartilage, tonsils, uvula) Condition: stable Disposition: PACU Indications for Procedure: 30-year-old white male with chronic snoring and sleep apnea with an RDI of 40. The has chronic nasal airway obstruction with mouth breathing tendencies. He tried CPAP and did not tolerate this. Operative Findings: Bilateral nasal septal spurs, inferior turbinate hypertrophy, tonsils +3.5 bilaterally, adenoids moderately hypertrophied, uvula and soft palate redundant and low-lying Description of Procedure: DESCRIPTION OF PROCEDURE: The patient was brought to the operative suite, placed in the supine position. The patient underwent induction of general anesthesia with oral endotracheal intubation without difficulty. The patient was prepped and draped in the usual aseptic fashion. 1% lidocaine with 1:100,000 epinephrine was infused submucosally on both sides of the nasal septum. While this was taking vasoconstrictive effect, the inferior turbinates were infractured with a Blount elevator. Partial submucous resection of the inferior turbinates was performed with Coblation device ablating a portion of the submucosal soft tissue. The inferior turbinates were then outfractured with a Blount elevator. A left hemitransfixion incision was then made through the mucoperichondrial. Mucoperiosteal flap on the left elevated. Bony cartilaginous junction was disarticulated and mucoperiosteal flap on the right was elevated. Bony nasoseptal deformity were removed with Eboni forceps and an inferior cartilaginous strip was removed, leaving a full 1.5 cm caudal strut. Checking intranasally, this corrected the nasal septal deformities and the hemitransfixion incision was closed with running 4-0 chromic suture. The bilateral Diez airway splints coated in bacitracin ointment were placed in the nasal cavities and sutured transseptally with 4-0 nylon suture. The mouth gag was then placed and soft palate was palpated. No submucous cleft was noted. Red Jamil catheters placed through the right nasal cavity and pulled through the oropharynx for soft palate retraction. The nasopharynx was examined mirror exam and adenoids vaporized with suction cautery. Hemostasis was noted and the mouth gag was removed. The left tonsil was grasped with a curved Allis clamp and dissected from tonsillar fossa in a superior to inferior direction using both blunt and electrocautery dissection until the tonsil was removed. Once tonsils removed hemostasis was gained with electrocautery. Attention was turned to the right where the right tonsil was removed exactly as the left had been. Once this tonsils removed hemostasis was gained with suction cautery. The uvula was then grasped and retracted anteriorly to ascertain the natural crease and the uvula and a portion of the soft palate was excised sharp dissection technique and hemostasis gained with electrocautery. The soft palate flap was then reconstructed with advance mucosa in order to close the tonsillar fossa and soft palate. The closure was accomplished with simple interrupted 3-0 Vicryl suture. Excellent hemostasis was noted excellent airway The patient was then suctioned in an orogastric fashion. The patient was allowed to emerge from general anesthesia, having tolerated the procedure well and was extubated in the operating suite, transferred to postoperative recovery area in satisfactory condition.
[2020-12-24 15:09] VITALS: TEMP 98
[2020-12-24] MEDS: HYDROmorphone 0.5 MG/0.5 ML SYRINGE IVP PRN ×2 (15:13→15:27)
[2020-12-24 15:18] VITALS: RESP 16
[2020-12-24] MEDS ORDERED: hydrALAZINE HCL 20 MG/ML 1 ML VIAL IVP ONE (15:24)
[2020-12-24 15:45] VITALS: PULSE 86
[2020-12-24] MEDS ORDERED: HYDROcodone/APAP 5-325MG 1 EACH TAB ONE (15:46)
[2020-12-24] MEDS ORDERED: HYDROcodone/APAP 5-325MG 1 EACH TAB PO ONE (15:47)
[2020-12-24 16:41] VITALS: BP 163/84
== END 2020-12-24 16:45 | disposition home or self-care (01) ==
LOC: OR 11:23
PROVIDERS: ATTEND Otolaryngology
DX: J34.2 Deviated nasal septum (principal); J34.3 Hypertrophy of nasal turbinates; J35.3 Hypertrophy of tonsils with hypertrophy of adenoids; G47.33 Obstructive sleep apnea (adult) (pediatric); K13.79 Other lesions of oral mucosa; Z79.899 Other long term (current) drug therapy; Z87.891 Personal history of nicotine dependence; Z82.49 Family history of ischemic heart disease and other diseases of the circulatory system; Z82.61 Family history of arthritis; Z83.3 Family history of diabetes mellitus
CPT/HCPCS: 88300; 88302; 88304

== ENCOUNTER 2020-12-27 20:49 | Emergency (ER) | payer OTHER ==
[2020-12-27 20:58] VITALS: BP 115/84; PULSE 70; RESP 20; TEMP 98.4
--- NOTE | 2020-12-27 21:14 | ED ---
Recheck HPI - General Chief Complaint: Recheck/Abnormal Lab/Rx Stated Complaint: Stitch on throat Ripped out Time Seen by Provider: 12/27/20 21:03 Source: patient, RN notes reviewed Mode of arrival: ambulatory Limitations: no limitations - History of Present Illness Initial Comments: 30-year-old male status post tonsillectomy/adenoidectomy 3 days out. He noted that he felt something scratchiness throat that he swallowed. checked his throat and stated that there was a hole. Patient was in no distress discomfort or pain while sitting up in bed during the exam. He noted that he didn't want to come in as he wasn't bleeding or had any pain. He denied any chest pain shortness of breath headache nausea vomiting diarrhea constipation fever fatigue chills hematemesis - Related Data Home Medications Medication Instructions Recorded Confirmed Cephalexin [Keflex] 500 mg PO Q48H 12/23/20 12/24/20 Allergies Allergy/AdvReac Type Severity Reaction Status Date / Time No Known Allergies Allergy Verified 12/27/20 20:57 Review of Systems ROS Statement: Those systems with pertinent positive or pertinent negative responses have been documented in the HPI. ROS Other: All systems not noted in ROS Statement are negative. Past Medical History Past Medical History: Sleep Apnea/CPAP/BIPAP Additional Past Medical History / Comment(s): lt leg cellulitis History of Any Multi-Drug Resistant Organisms: None Reported Past Surgical History: Adenoidectomy, Tonsillectomy Additional Past Surgical History / Comment(s): [place] teeth, vasectomy, uvual shaving, Past Anesthesia/Blood Transfusion Reactions: No Reported Reaction Additional Past Anesthesia/Blood Transfusion Reaction / Comment(s): has never had general anesthesia Past Psychological History: No Psychological Hx Reported Smoking Status: Vaper Past Alcohol Use History: None Reported Past Drug Use History: None Reported - Past Family History Sister(s) Additional Family Medical History / Comment(s): lupus Father Family Medical History: Congestive Heart Failure (CHF), Hypertension Additional Family Medical History / Comment(s): pacemaker Mother Family Medical History: Hypertension Additional Family Medical History / Comment(s): HTN General Exam Limitations: no limitations General appearance: alert, in no apparent distress Head exam: Present: atraumatic, normocephalic, normal inspection Eye exam: Present: normal appearance, PERRL, EOMI. Absent: scleral icterus, conjunctival injection, periorbital swelling ENT exam: Present: normal exam, mucous membranes moist, other (Surgical cauterization looks intact, no bleeding no erythema.) Neck exam: Present: normal inspection. Absent: tenderness, meningismus, lymphadenopathy Respiratory exam: Present: normal lung sounds bilaterally. Absent: respiratory distress, wheezes, rales, rhonchi, stridor Cardiovascular Exam: Present: regular rate, normal rhythm, normal heart sounds. Absent: systolic murmur, diastolic murmur, rubs, gallop, clicks GI/Abdominal exam: Present: soft, normal bowel sounds. Absent: distended, tenderness, guarding, rebound, rigid Extremities exam: Present: normal inspection, full ROM, normal capillary refill. Absent: tenderness, pedal edema, joint swelling, calf tenderness Neurological exam: Present: alert, oriented X3, CN II-XII intact Psychiatric exam: Present: normal affect, normal mood Skin exam: Present: warm, dry, intact, normal color. Absent: rash Course Vital Signs 12/27/20 20:52 Temperature 98.4 F Pulse Rate 70 Respiratory 20 Rate Blood Pressure 115/84 O2 Sat by Pulse 99 Oximetry Medical Decision Making - Medical Decision Making 30-year-old male status post tonsillectomy/adenoidectomy about 3 days complaining of swelling surgical scab. Case discussed with Dr. Floyd, was decided the patient to discharge home with follow-up to surgeon if needed. Disposition Clinical Impression: Status post tonsillectomy and adenoidectomy Disposition: HOME SELF-CARE Condition: Stable Instructions (If sedation given, give patient instructions): Tonsillectomy (DC) Additional Instructions: Please return to the Emergency Department if symptoms worsen or any other concerns. Follow-up with surgeon in 2-3 days for any questions or concerns. Follow-up primary care as needed. If any increase in bleeding, shortness of breath, pain return to the emergency room. Is patient prescribed a controlled substance at d/c from ED?: No Referrals: Deb Harris MD [Primary Care Provider] - 1-2 days Paul Madrid MD [STAFF PHYSICIAN] - 1-2 days Time of Disposition: 21:14
== END 2020-12-27 21:50 | disposition home or self-care (01) ==
LOC: EC 20:49
DX: Z48.89 Encounter for other specified surgical aftercare (principal); Z90.89 Acquired absence of other organs; F17.290 Nicotine dependence, other tobacco product, uncomplicated; G47.30 Sleep apnea, unspecified; Z99.89 Dependence on other enabling machines and devices
CPT/HCPCS: 99283

== ENCOUNTER 2023-04-01 22:37 | Emergency (ER) | payer BC, OTHER ==
[2023-04-01 22:52] VITALS: RESP 20
[2023-04-02] MEDS ORDERED: FLUORESCEIN STRIPS 1 MG STRIP LEFT EYE ONE (00:24)
[2023-04-02] MEDS ORDERED: PROPARACAINE 0.5% OPHTH DROPS 15 ML BTL LEFT EYE STA (00:24)
[2023-04-02] MEDS ORDERED: GENTAMICIN 0.3% OPHTH DROPS 5 ML BTL LEFT EYE STA (01:27)
--- NOTE | 2023-04-02 01:31 | ED ---
Eye Problem HPI - General Chief complaint: Eye Problems Stated complaint: FB in Eye Time Seen by Provider: 04/02/23 00:23 Source: patient Mode of arrival: ambulatory Limitations: no limitations - History of Present Illness Initial comments: Patient is a 33-year-old male presents to the emergency department for eye irritation. Patient has had irritation to eyes with watering redness for the past 2 days. Patient thinks he may have a foreign body in his eye while working in the yard. He denies blurred vision, double vision. Denies pain with eye movements. Denies fever, chills. Denies contact lens use. - Related Data Home Medications Medication Instructions Recorded Confirmed Cephalexin [Keflex] 500 mg PO Q48H 12/23/20 12/24/20 Allergies Allergy/AdvReac Type Severity Reaction Status Date / Time No Known Allergies Allergy Verified 04/01/23 22:52 Review of Systems ROS Statement: Those systems with pertinent positive or pertinent negative responses have been documented in the HPI. ROS Other: All systems not noted in ROS Statement are negative. Past Medical History Past Medical History: Sleep Apnea/CPAP/BIPAP Additional Past Medical History / Comment(s): lt leg cellulitis History of Any Multi-Drug Resistant Organisms: None Reported Past Surgical History: Adenoidectomy, Tonsillectomy Additional Past Surgical History / Comment(s): [place] teeth, vasectomy, uvual shaving, Past Anesthesia/Blood Transfusion Reactions: No Reported Reaction Additional Past Anesthesia/Blood Transfusion Reaction / Comment(s): has never had general anesthesia Past Psychological History: No Psychological Hx Reported Smoking Status: Vaper Past Alcohol Use History: None Reported Past Drug Use History: None Reported - Past Family History Sister(s) Additional Family Medical History / Comment(s): lupus Father Family Medical History: Congestive Heart Failure (CHF), Hypertension Additional Family Medical History / Comment(s): pacemaker Mother Family Medical History: Hypertension Additional Family Medical History / Comment(s): HTN General Exam Limitations: no limitations General appearance: alert, in no apparent distress Head exam: Present: atraumatic, normocephalic, normal inspection Eye exam: Present: normal appearance, PERRL, EOMI, scleral icterus. Absent: conjunctival injection, periorbital swelling Respiratory exam: Present: normal lung sounds bilaterally. Absent: respiratory distress, wheezes, rales, rhonchi, stridor Cardiovascular Exam: Present: regular rate, normal rhythm, normal heart sounds. Absent: systolic murmur, diastolic murmur, rubs, gallop, clicks Neurological exam: Present: alert, oriented X3, CN II-XII intact Psychiatric exam: Present: normal affect, normal mood Skin exam: Present: warm, dry, intact, normal color. Absent: rash Course Vital Signs 04/01/23 04/02/23 22:49 01:41 Temperature 98.0 F 97.2 F L Pulse Rate 94 71 Respiratory 20 20 Rate Blood Pressure 163/80 130/75 O2 Sat by Pulse 99 98 Oximetry Medical Decision Making - Medical Decision Making Was pt. sent in by a medical professional or institution (, [facility]ET[facility], GENERAL INTERNIST, urgent care, hospital, or senior living...) When possible be specific @ -No Did you speak to anyone other than the patient for history (EMS, parent, family, police, friend...)? What history was obtained from this source @ -No Did you review nursing and triage notes (agree or disagree)? Why? @ -I reviewed and agree with nursing and triage notes Were old charts reviewed (outside hosp., previous admission, EMS record, old EKG, old radiological studies, urgent care reports/EKG's, senior living records)? Report findings @ -No old charts were reviewed Differential Diagnosis (chest pain, altered mental status, abdominal pain women, abdominal pain men, vaginal bleeding, weakness, fever, dyspnea, syncope, headache, dizziness, GI bleed, back pain, seizure, CVA, palpatations, mental health)? @ -Corneal abrasion, corneal ulcer, conjunctivitis EKG interpreted by me (3pts min.). @ -As above X-rays interpreted by me (1pt min.). @ -None done CT interpreted by me (1pt min.). @ -None done U/S interpreted by me (1pt. min.). @ -None done What testing was considered but not performed or refused? (CT, X-rays, U/S, labs)? Why? @ -None What meds were considered but not given or refused? Why? @ -None Did you discuss the management of the patient with other professionals (professionals i.e. LANETTE Truong, GENERAL INTERNIST, lab, RT, psych nurse, social media marketing manager, registrar college or university, teacher, canine enforcement officer, case management associate)? Give summary @ -No Was smoking cessation discussed for >3mins.? @ -No Was critical care preformed (if so, how long)? @ -No Were there social determinants of health that impacted care today? How? (Homelessness, low income, unemployed, alcoholism, drug addiction, transportation, low edu. Level, literacy, decrease access to med. care, shelter, rehab)? @ -No Was there de-escalation of care discussed even if they declined (Discuss DNR or withdrawal of care, Hospice)? DNR status @ -No What co-morbidities impacted this encounter? (DM, HTN, Smoking, COPD, CAD, Cancer, CVA, ARF, Chemo, Hep., AIDS, mental health diagnosis, sleep apnea, morbid obesity)? @ -None Was patient admitted / discharged? Hospital course, mention meds given and route, prescriptions, significant lab abnormalities, going to OR and other pertinent info. @Discharged. The eye stained patient has small corneal abrasion no ulcer, foreign body, rust ring. he will be discharged with antibiotic drops. Undiagnosed new problem with uncertain prognosis? @ -No Drug Therapy requiring intensive monitoring for toxicity (Heparin, Nitro, Insulin, Cardizem)? @ -No] Were any procedures done? @ -[No] Diagnosis/symptom? @ -Corneal abrasion Acute, or Chronic, or Acute on Chronic? @ -Acute Uncomplicated (without systemic symptoms) or Complicated (systemic symptoms)? @ -Uncomplicated Side effects of treatment? @ -[No] Exacerbation, Progression, or Severe Exacerbation? @ -[No] Poses a threat to life or bodily function? How? (Chest pain, [place], [place], pneumonia, PE, COPD, DKA, ARF, appy, cholecystitis, CVA, Diverticulitis, Homicidal, Suicidal, threat to staff... and all critical care pts) @ -[No] Dr. Andrade is my attending Disposition Clinical Impression: Corneal abrasion Disposition: HOME SELF-CARE Condition: Good Instructions (If sedation given, give patient instructions): Corneal Abrasion (ED) Additional Instructions: Apply 2 drops 6 times daily for 5 days. Follow-up with data analytics chief scientist in one to 2 days. Return to the emergency department if you experience new, concerning, or worsening symptoms. Is patient prescribed a controlled substance at d/c from ED?: No Referrals: None,Stated [Primary Care Provider] - 1-2 days Vitor Duke MD [STAFF PHYSICIAN] - 1-2 days
[2023-04-02 01:42] VITALS: BP 130/75; PULSE 71; TEMP 97.2
== END 2023-04-02 02:03 | disposition home or self-care (01) ==
LOC: EC 22:37
DX: S05.02XA Injury of conjunctiva and corneal abrasion without foreign body, left eye, initial encounter (principal); S05.01XA Injury of conjunctiva and corneal abrasion without foreign body, right eye, initial encounter; G47.30 Sleep apnea, unspecified; F17.290 Nicotine dependence, other tobacco product, uncomplicated; X58.XXXA Exposure to other specified factors, initial encounter
CPT/HCPCS: 99283